=== PATIENT | female | born 1955 | race Caucasian/White ===

== ENCOUNTER 2018-11-04 14:13 | Emergency (ER) | payer MEDICARE, BC ==
[2018-11-04 15:38] VITALS: BP 135/67
[2018-11-04] MEDS ORDERED: HYDROmorphone 0.5 MG/0.5 ML Syringe IM ONE ×2 (16:19→17:34)
--- NOTE | 2018-11-04 16:36 | EDM.PDOC ---
ED HPI GENERAL MEDICAL PROBLEM - General Chief Complaint: Upper Extremity Injury/Pain Stated Complaint: ELBOW AND KNEE INJURY Time Seen by Provider: 11/04/18 16:09 Source of Information: Reports: Patient, RN Notes Reviewed History Limitations: Reports: No Limitations - History of Present Illness INITIAL COMMENTS - FREE TEXT/NARRATIVE: Patient is a 63-year-old female who presents to the ED for evaluation of a fall. Patient states she fell today at her home in her garage onto the cement floor. She denies any sort of loss of consciousness, or dizziness, she thinks she was just resting and fell over her own 2 feet. She ended up hitting her right forehead and left elbow. There is a contusion to her right forehead and left elbow mainly. The patient is wondering if her elbow is grossly she has had limited range of motion in this. Patient notes that she has had prior issues with her knees, but is not having any pain in them today. She is complaining of a headache due to the injury. The patient is not on any sort of blood thinners but does take aspirin, 81 mg on a daily basis. She denied any sort of loss of consciousness, dizziness, blurred vision or double vision, or pain anywhere else in the body. Left Elbow Pain Score (Numeric/FACES): 10 - Related Data Allergies Allergy/AdvReac Type Severity Reaction Status Date / Time Penicillins Allergy Rash Verified 05/07/14 13:50 Home Meds: Home Meds Albuterol Sulfate [Albuterol Sulfate HFA] 2 puff INH Q4H PRN 05/07/14 [History] Aspirin [Susu Chewable Aspirin] 81 mg PO DAILY 05/07/14 [History] Cholecalciferol (Vitamin D3) [Vitamin D3] 2,000 unit PO BID 05/07/14 [History] Furosemide 40 mg PO BID 05/07/14 [History] Glycerin [Laxative Suppository] 1 supp RECTAL ASDIRECTED 05/07/14 [History] Levothyroxine 75 mcg PO DAILY 05/07/14 [History] Metoprolol Tartrate 37.5 mg PO BID 05/07/14 [History] Multivitamin [Multi Vitamin Daily] 1 tab PO DAILY 05/07/14 [History] Mycophenolate Mofetil [Cellcept] 500 mg PO BID 05/07/14 [History] Omeprazole [Prilosec] 40 mg PO DAILY 05/07/14 [History] Polyethylene Glycol 3350 [MiraLAX] 1 dose PO DAILY 05/07/14 [History] Sennosides [Senna] 2 tab PO BID 05/07/14 [History] Tacrolimus 3 mg PO BID 05/07/14 [History] traZODone 100 mg PO BEDTIME 05/07/14 [History] Insulin Degludec [Tresiba] 15 units INJECT BEDTIME 11/04/18 [History] Review of Systems - Review of Systems Review Of Systems: See Below Constitutional: Reports: No Symptoms Eyes: Denies: Blurred Vision, Drainage, Previous Injury, Vision Change Ears: Reports: No Symptoms Nose: Reports: No Symptoms Mouth/Throat: Reports: No Symptoms Respiratory: Reports: No Symptoms Cardiovascular: Reports: No Symptoms GI/Abdominal: Reports: No Symptoms Genitourinary: Reports: No Symptoms Musculoskeletal: Reports: Joint Pain (Left elbow pain/contusion) Skin: Reports: Bruising (left elbow and R forehead) Neurological: Reports: Headache. Denies: Confusion, Dizziness, Numbness, Pre- Existing Deficit, Seizure, Syncope, Tingling Psychiatric: Reports: No Symptoms ED EXAM, GENERAL - Physical Exam Exam: See Below Exam Limited By: No Limitations General Appearance: Alert, WD/WN, No Apparent Distress Eye Exam: Bilateral Eye: EOMI, Normal Inspection, PERRL Ears: Normal External Exam, Normal Canal, Hearing Grossly Normal, Normal TMs Nose: Normal Inspection, Normal Mucosa, No Blood Throat/Mouth: Normal Inspection, Normal Lips, Normal Teeth, Normal Gums, Normal Oropharynx, Normal Voice, No Airway Compromise Head: Normocephalic, Other (Right sided forehead hematoma) Neck: Normal Inspection, Supple, Non-Tender, Full Range of Motion Respiratory/Chest: No Respiratory Distress, Lungs Clear, Normal Breath Sounds, No Accessory Muscle Use, Chest Non-Tender Cardiovascular: Normal Peripheral Pulses, Regular Rate, Rhythm, No Murmur Extremities: Normal Inspection, Normal Capillary Refill Neurological: Alert, Oriented, Normal Cognition, No Motor/Sensory Deficits Psychiatric: Normal Affect, Normal Mood Skin Exam: Warm, Dry, Intact, No Rash, Ecchymosis (to R forehead and L elbow) ED TRAUMA EXTREMITY PROCEDURES - Splinting Left Upper Extremity Splint Site: left elbow Pre-Procedure NV Status: Normal Post-Procedure NV Status: Normal Splint Material: Fiberglass Splint Design: Posterior (long arm slab), Sling Applied & Form Fitted By: Provider Provider Post-Splint Application NV Check: NV Status Normal, Good Position Complications: No Course - Vital Signs Last Recorded V/S: Last Vital Signs Temp 97.4 F 11/04/18 15:37 Pulse 55 L 11/04/18 15:37 Resp 20 11/04/18 15:37 BP 135/67 11/04/18 15:37 Pulse Ox 98 11/04/18 15:37 - Orders/Labs/Meds Orders: Active Orders 24 hr Category Date Time Status Elbow Min 3V Lt [CR] Stat Exams 11/04/18 16:20 Ordered Meds: Medications Discontinued Medications Generic Name Dose Route Start Last Admin Trade Name Freq PRN Reason Stop Dose Admin Hydromorphone HCl 0.5 mg 11/04/18 16:19 11/04/18 16:58 Dilaudid IM 11/04/18 16:20 0.5 mg ONETIME ONE Administration Hydromorphone HCl 0.5 mg 11/04/18 17:34 Dilaudid IM 11/04/18 17:35 ONETIME ONE - Re-Assessments/Exams Free Text/Narrative Re-Assessment/Exam: 11/04/18 16:35 Patient presents to the ED for evaluation of a fall at home. Did order elbow x- rays for evaluation of a possible broken bone. Patient's neuro exam is within normal limits, she is having headache, but states this is just more of a dull ache and would not characterize this as the worst headache she's ever had in her entire life. The patient notes a history of migraines and she says this is minimal compared to that. I did order 0.5 mg IM Dilaudid for initial pain management. 11/04/18 17:37 Patient's x-rays are done, and demonstrate a proximal radial fracture, this is not displaced and appears to be in good alignment. Although I do not have the official radiology read this was identified also by Dr. Huertas, I did call Dr. Rooney, our orthopedic shoe fitter and he recommends putting in a posterior slab splint and he will follow up with the patient this week for a cast. Patient was given another 0.5 mg of IM Dilaudid for pain control due to the anticipated manipulation regarding the splint. Departure - Departure Time of Disposition: 18:15 Disposition: Home, Self-Care 01 Condition: Fair Clinical Impression: Radial head fracture, closed Qualifiers: Encounter type: initial encounter Fracture alignment: nondisplaced Laterality: left Qualified Code(s): S52.125A - Nondisplaced fracture of head of left radius , initial encounter for closed fracture - Discharge Information *PRESCRIPTION DRUG MONITORING PROGRAM REVIEWED*: No *COPY OF PRESCRIPTION DRUG MONITORING REPORT IN PATIENT KARLIE: No Instructions: Radial Head Fracture, [id number] Referrals: Yuki Lincoln NP [Primary Care Provider] - Forms: ED Department Discharge Additional Instructions: You have been evaluated in the ED for your left elbow pain. Your x-ray demonstrated a radial head fracture of your left radius. Please use ice as tolerated to the affected area. You may take Tylenol 500 mg or ibuprofen 600mg q6 hrs for pain relief. Please do so until you have a tolerable level of pain with activity. Do not exceed 4000mg tylenol, Do not exceed 3200mg ibuprofen in a 24 hour time period. You were given a prescription for hydrocodone/acetaminophen 5/325, please take as directed for pain not relieved by Tylenol or ibuprofen alone. Please call Ortho for follow-up and further evaluation Dr. Rooney is our orthopedic surgeon, his office number is [phone]. Please call and set up an appointment as soon as possible for further management. Please return to ED if your symptoms should change or worsen. - My Orders Last 24 Hours: My Active Orders 11/04/18 16:20 Elbow Min 3V Lt [CR] Stat - Assessment/Plan Last 24 Hours: My Active Orders 11/04/18 16:20 Elbow Min 3V Lt [CR] Stat
--- NOTE | 2018-11-05 07:32 | CR ---
Left elbow: Four views of the left elbow were obtained. Comparison: No previous study is available. Slightly displaced and comminuted fracture is noted within the olecranon process. Prominent soft tissue swelling is seen posteriorly. No additional fracture is noted. Joint effusion is seen. Impression: 1. Olecranon process fracture as noted above, soft tissue swelling and joint effusion. Diagnostic code #3
== END 2018-11-04 19:10 | disposition home or self-care (01) ==
LOC: JD.ED 14:13 → SUPCPDRO 14:13 → JD.ED 19:10
DX: S52.125A Nondisplaced fracture of head of left radius, initial encounter for closed fracture (principal); Z88.0 Allergy status to penicillin; Z79.51 Long term (current) use of inhaled steroids; Z79.82 Long term (current) use of aspirin; Z79.899 Other long term (current) drug therapy; Z79.4 Long term (current) use of insulin; W19.XXXA Unspecified fall, initial encounter; W22.8XXA Striking against or struck by other objects, initial encounter
CPT/HCPCS: 29105; 73080; 96372; 99283; J1170

== ENCOUNTER 2021-06-16 07:09 | Emergency (ER) | payer MEDICARE, BC ==
[2021-06-16] MEDS ORDERED: Sodium Chloride 0.9% 10 ML Syringe FLUSH PRN (07:42)
[2021-06-16 07:43] VITALS: BP 155/103; PULSE 86
[2021-06-16] MEDS ORDERED: HYDROmorphone 1 MG/ML Syringe IVPUSH ONE ×2 (08:43→13:34)
[2021-06-16] MEDS ORDERED: Iopamidol 612 MG/ML 100 ML Bottle IVPUSH ONE (09:10)
[2021-06-16] MEDS ORDERED: Diatrizoate Meglumine/Diatrizoate Sodium 37% 120 ML Bottle PO ONE (09:10)
[2021-06-16] MEDS ORDERED: Sodium Chloride 0.9% 100 ML IV SCH (09:15)
[2021-06-16] MEDS: Sodium Chloride 0.9% 10 ML Syringe FLUSH ONE (09:36)
[2021-06-16 09:49] LABS: CORONAVIRUS COVID-19 NAA NEGATIVE (NEGATIVE)
[2021-06-16] MEDS ORDERED: Aspirin 81 MG Tab.Chew PO ONE (10:47)
[2021-06-16] MEDS: Potassium Chloride 10 MEQ in Premix Bag 1 BAG IV SCH ×2 (11:33→13:25)
== END 2021-06-16 13:45 ==
LOC: JD.ED 07:09
DX: S22.42XA Multiple fractures of ribs, left side, initial encounter for closed fracture (principal); M54.50 Low back pain, unspecified; R41.0 Disorientation, unspecified; N28.9 Disorder of kidney and ureter, unspecified; E78.00 Pure hypercholesterolemia, unspecified; I10 Essential (primary) hypertension; K21.9 Gastro-esophageal reflux disease without esophagitis; E66.9 Obesity, unspecified; Z68.30 Body mass index [BMI] 30.0-30.9, adult; Z88.0 Allergy status to penicillin; Z79.899 Other long term (current) drug therapy; Z20.822 Contact with and (suspected) exposure to COVID-19; W19.XXXA Unspecified fall, initial encounter
CPT/HCPCS: 0240U; 36415; 70450; 70450-26; 71045; 71045-26; 72131; 72131-26; 74177; 74177-26; 80053; 81001; 83605; 83690; 83735; 84484; 85025; 85610; 85730; 86140; 93005; 96365; 96366; 96375; 96376; 99285-25; A9270-GY; J1170; J3480; J3490; Q9963; Q9967

== ENCOUNTER 2022-06-29 18:02 | Emergency (ER) | payer MEDICARE, BC ==
[2022-06-29] MEDS ORDERED: Sodium Chloride 0.9% 10 ML Syringe FLUSH PRN (18:25)
[2022-06-29] MEDS ORDERED: Diltiazem 25 MG/5 ML SDV IVPUSH ONE (18:25)
[2022-06-29] MEDS ORDERED: Sodium Chloride 0.9% 1,000 ML IV ONE ×2 (18:25→20:05)
[2022-06-29] MEDS ORDERED: Diltiazem 125 MG in Sodium Chloride 0.9% 100 ML IV SCH (19:45)
[2022-06-29] MEDS ORDERED: Potassium Chloride 20 MEQ Tab.ER PO ONE (19:48)
[2022-06-29] MEDS ORDERED: Sodium Chloride 0.9% 1,000 ML ONE (19:54)
[2022-06-29] MEDS ORDERED: Metoprolol Tartrate 25 MG Tab PO ONE (19:57)
[2022-06-29] MEDS ORDERED: Potassium Chloride 10 MEQ in Premix Bag 1 BAG IV SCH (20:00)
[2022-06-29] MEDS ORDERED: Metoprolol Tartrate 5 MG/5 ML SDV IVPUSH SCH (20:00)
[2022-06-29] MEDS ORDERED: Potassium Chloride 10 MEQ in Premix Bag 1 BAG IV ONE (20:18)
[2022-06-29] MEDS ORDERED: Metoprolol Tartrate 5 MG/5 ML SDV IVPUSH ONE (20:19)
[2022-06-29] MEDS ORDERED: Potassium Chloride 20 MEQ Tab.ER ONE (20:33)
[2022-06-29] MEDS ORDERED: Potassium Chloride 100 ML ONE (20:33)
[2022-06-29] MEDS ORDERED: Metoprolol Tartrate 5 MG/5 ML SDV ONE (20:34)
[2022-06-29] MEDS ORDERED: Metoprolol Tartrate 50 MG Tab ONE (20:35)
[2022-06-29] MEDS ORDERED: Metoprolol Tartrate 25 MG Tab ONE (20:51)
[2022-06-29] MEDS ORDERED: Sodium Chloride 0.9% 500 ML IV ONE (22:34)
[2022-06-29] MEDS ORDERED: Sodium Chloride 0.9% 1,000 ML IV SCH (23:15)
[2022-06-30 06:27] VITALS: BP 113/83; PULSE 95
== END 2022-06-30 07:20 | disposition home or self-care (01) ==
LOC: JD.ED 18:02
DX: R41.82 Altered mental status, unspecified (principal); I48.91 Unspecified atrial fibrillation; E86.0 Dehydration; R73.9 Hyperglycemia, unspecified; D72.819 Decreased white blood cell count, unspecified; D64.9 Anemia, unspecified; I10 Essential (primary) hypertension; E66.9 Obesity, unspecified; K21.9 Gastro-esophageal reflux disease without esophagitis; Z88.0 Allergy status to penicillin; E78.00 Pure hypercholesterolemia, unspecified; Z79.899 Other long term (current) drug therapy; Z79.82 Long term (current) use of aspirin; Z87.891 Personal history of nicotine dependence
CPT/HCPCS: 36415; 36430; 71045; 80048; 80053; 80180; 80197; 80307; 81001; 82140; 83605; 83690; 83735; 84443; 85025; 86140; 86850; 86900; 86901; 86922; 87040; 93005; 96361; 96365; 96375; 99285; A9270; J3480; J3490; J7030; P9016; 93010; 99284

== ENCOUNTER 2022-08-15 12:22 | Inpatient (IN) | payer MEDICARE, BC ==
[2022-08-15 13:44] LABS: CORONAVIRUS COVID-19 NAA NEGATIVE (NEGATIVE); INFLUENZA A NAA NEGATIVE (NEGATIVE); RESPIRATORY SYNCYTIAL VIR NAA NEGATIVE (NEGATIVE)
[2022-08-15] MEDS ORDERED: Sodium Chloride 0.9% 1,000 ML IV ONE ×3 (13:51→19:01)
[2022-08-15 13:52] LABS: HEMATOCRIT 30.8 % (34.1-44.9); MEAN CORPUSCULAR HGB CONC 31.2 g/dl (32.2-35.5); MEAN CORPUSCULAR VOLUME 112.4 fl (79.4-94.8); MEAN PLATELET VOLUME 8.6 fl (9.4-12.3); PLATELET COUNT,PLT 157 K/mm3 (182-369); RED BLOOD CELL COUNT 2.74 M/mm3 (3.98-5.22); WHITE BLOOD CELL COUNT,WBC 4.07 K/mm3 (3.98-10.04)
[2022-08-15 13:59] LABS: HEMOGLOBIN 9.6 gm/dl (11.2-15.7)
[2022-08-15 14:23] LABS: A/G RATIO 1.2 (1-2); ALBUMIN 4.4 g/dl (3.4-5.0); ANION GAP 25.5 (5-15); BILIRUBIN TOTAL 0.4 mg/dL (0.2-1.0); BUN/CREATININE RATIO 25.8 (14-18); CALCIUM 9.7 mg/dL (8.5-10.1); CREATININE 3.3 mg/dL (0.55-1.02); EST CRCL DRUG DOSING (CG) 14.89 mL/min; MAGNESIUM 2.4 mg/dL (1.8-2.4); POTASSIUM,K 4.5 mEq/L (3.5-5.1); PROTEIN TOTAL,TP 8.1 g/dl (6.4-8.2)
[2022-08-15 14:25] LABS: LACTIC ACID 1.7 mmol/L (0.4-2.0)
[2022-08-15 14:30] LABS: BAND PERCENT MAN 4 % (0-10); BASOPHILS PERCENT MAN 0 (0.1-1.2); EOSINOPHILS PERCENT MAN 0 % (0.7-5.8); LYMPHOCYTES % ATYPICAL MANUAL 0 %; LYMPHOCYTES PERCENT MAN 14 % (20-40); MONOCYTES PERCENT MAN 5 % (2-10)
[2022-08-15 14:31] LABS: ANISOCYTOSIS 3+ MARKED; PLATELET COUNT ESTIMATE ADEQUATE; TOXIC GRANULATION 1+ SLIGHT
[2022-08-15] MEDS ORDERED: Diltiazem 25 MG/5 ML SDV IVPUSH ONE (18:32)
[2022-08-15 18:39] LABS: ANION GAP 23.6 (5-15); BUN/CREATININE RATIO 27.1 (14-18); CREATININE 2.8 mg/dL (0.55-1.02); EST CRCL DRUG DOSING (CG) 17.54 mL/min; POTASSIUM,K 4.6 mEq/L (3.5-5.1)
[2022-08-15 19:36] LABS: APPEARANCE,URINE CLEAR (Clear); BILIRUBIN,URINE 1+ (Negative); COLOR,URINE YELLOW (Yellow); GLUCOSE,URINE NEGATIVE (Negative); KETONES,URINE 1+ (Negative); LEUKOCYTE ESTERASE,URINE NEGATIVE (Negative); NITRITE,URINE NEGATIVE (Negative); OCCULT BLOOD,URINE 1+ (Negative); PH,URINE 5.5 (5.0-8.0); PROTEIN,URINE 2+ (Negative); UROBILINOGEN,URINE 0.2 (0.2-1.0)
[2022-08-15 19:57] LABS: BACTERIA,URINE FEW /hpf (FEW); HYALINE CASTS,URINE 0-5 /lpf (0-5); MUCUS,URINE RARE /hpf (FEW); RBC,URINE 0-5 /hpf (0-5); SQUAMOUS EPITHELIAL CELLS,UR NOT SEEN /hpf (0-5); WBC,URINE 0-5 /hpf (0-5)
[2022-08-15] MEDS ORDERED: Docusate Sodium 100 MG Cap PO PRN (20:59)
[2022-08-15] MEDS ORDERED: oxyCODONE 5 MG Tab PO PRN (20:59)
[2022-08-15] MEDS ORDERED: Ondansetron 4 MG Tab.DIS PO PRN (20:59)
[2022-08-15] MEDS ORDERED: Acetaminophen 650 MG Supp RECTAL PRN (20:59)
[2022-08-15] MEDS ORDERED: Ondansetron 4 MG/2 ML SDV IV PRN (20:59)
[2022-08-15] MEDS ORDERED: Polyethylene Glycol 3350 Powder 17 GM Packet PO PRN (20:59)
[2022-08-15] MEDS ORDERED: Glucose Gel 15 GM in 37.5 GM Tube PO ONE (20:59)
[2022-08-15] MEDS ORDERED: Albuterol/Ipratropium 3.0-0.5 MG/3 ML Neb Soln NEB PRN (20:59)
[2022-08-15] MEDS ORDERED: Sodium Chloride 0.9% 1,000 ML IV SCH (21:00)
[2022-08-15 21:27] LABS: HEMOGLOBIN A1C 5.6 %
[2022-08-15] MEDS: cefTRIAXone 1 GM in Sodium Chloride 0.9% 50 ML IV SCH (22:22)
[2022-08-15] MEDS: Acetaminophen 325 MG Tab PO PRN (22:22)
[2022-08-15] MEDS: Azithromycin 500 MG in Sodium Chloride 0.9% 250 ML IV SCH (22:43)
[2022-08-16] MEDS: ALPRAZolam 0.25 MG Tab PO PRN ×2 (03:51→21:14)
[2022-08-16] MEDS: Acetaminophen 325 MG Tab PO PRN ×4 (03:51→21:14)
[2022-08-16] MEDS: Sodium Chloride 0.9% 1,000 ML IV SCH ×2 (05:26→19:16)
[2022-08-16 06:14] LABS: ANION GAP 25.7 (5-15); BUN/CREATININE RATIO 29.1 (14-18); CALCIUM 8.8 mg/dL (8.5-10.1); CREATININE 2.3 mg/dL (0.55-1.02); EST CRCL DRUG DOSING (CG) 21.36 mL/min; POTASSIUM,K 3.7 mEq/L (3.5-5.1)
[2022-08-16 06:25] LABS: EOSINOPHILS PERCENT AUTO 0 (0.7-5.8); HEMATOCRIT 23.2 % (34.1-44.9); IMMATURE GRAN ABSOLUTE AUTO 0.01 K/mm3 (0.00-0.10); IMMATURE GRAN PERCENT AUTO 0.4 % (<=1.0); LYMPHOCYTES ABSOLUTE AUTO 0.25 K/mm3 (1.18-3.74); LYMPHOCYTES PERCENT AUTO 10.4 % (19.3-51.7); MEAN CORPUSCULAR HEMOGLOBIN 35.1 pg (25.6-32.2); MEAN CORPUSCULAR HGB CONC 31.5 g/dl (32.2-35.5); MEAN CORPUSCULAR VOLUME 111.5 fl (79.4-94.8); MEAN PLATELET VOLUME 8.5 fl (9.4-12.3); MONOCYTES ABSOLUTE AUTO 0.39 K/mm3 (0.24-0.36); MONOCYTES PERCENT AUTO 16.3 % (4.7-12.5); NEUTROPHILS ABSOLUTE AUTO 1.75 K/mm3 (1.56-6.13); NEUTROPHILS PERCENT AUTO 72.9 % (34.0-71.1); PLATELET COUNT,PLT 121 K/mm3 (182-369); RED BLOOD CELL COUNT 2.08 M/mm3 (3.98-5.22)
[2022-08-16] MEDS ORDERED: Benzonatate 100 MG Cap PO PRN (06:53)
[2022-08-16 07:07] LABS: HEMOGLOBIN 7.3 gm/dl (11.2-15.7)
[2022-08-16] MEDS ORDERED: Sodium Bicarbonate 8.4% 50 MEQ/50 ML Syringe IVPUSH ONE (07:35)
[2022-08-16] MEDS: Insulin Lispro 100 Unit/ML 3 ML KwikPen SUBCUT SCH ×4 (08:35→21:08)
[2022-08-16] MEDS: guaiFENesin 600 MG Tab.ER PO SCH ×2 (08:37→21:14)
[2022-08-16] MEDS: Metoprolol Tartrate 25 MG Tab PO SCH ×2 (08:39→21:03)
[2022-08-16] MEDS: Cyclobenzaprine 10 MG Tab PO SCH (08:39)
[2022-08-16] MEDS: Pantoprazole 40 MG Tab.CR PO SCH ×2 (08:41→21:03)
[2022-08-16] MEDS: Multivitamin Tab PO SCH (08:41)
[2022-08-16] MEDS: Aspirin 81 MG Tab.Chew PO SCH (08:41)
[2022-08-16] MEDS: Sodium Bicarbonate 650 MG Tab PO SCH ×2 (08:41→21:03)
[2022-08-16] MEDS: Pravastatin 20 MG Tab PO SCH (08:41)
[2022-08-16] MEDS: Tacrolimus 1 MG Cap PO SCH ×2 (08:43→21:07)
[2022-08-16] MEDS: Mycophenolate Mofetil 250 MG Cap PO SCH ×2 (08:44→21:07)
[2022-08-16] MEDS: Insulin Glargine,Human Rec. Analog 100 Units/ML 3 ML Pen SUBCUT SCH (08:44)
[2022-08-16] MEDS: LOVENOX SUBCUT SCH (08:46)
[2022-08-16 09:25] LABS: SLIDE REVIEW ABNORMAL SMEAR
[2022-08-16] MEDS: cefTRIAXone 1 GM in Sodium Chloride 0.9% 50 ML IV SCH (21:01)
[2022-08-16] MEDS: Azithromycin 500 MG in Sodium Chloride 0.9% 250 ML IV SCH (21:17)
[2022-08-17] MEDS: Acetaminophen 325 MG Tab PO PRN ×2 (02:37→20:26)
[2022-08-17 06:08] LABS: EOSINOPHILS PERCENT AUTO 0 (0.7-5.8); HEMATOCRIT 21.5 % (34.1-44.9); IMMATURE GRAN ABSOLUTE AUTO 0.02 K/mm3 (0.00-0.10); IMMATURE GRAN PERCENT AUTO 1.6 % (<=1.0); LYMPHOCYTES ABSOLUTE AUTO 0.19 K/mm3 (1.18-3.74); LYMPHOCYTES PERCENT AUTO 14.8 % (19.3-51.7); MEAN CORPUSCULAR HEMOGLOBIN 34.4 pg (25.6-32.2); MEAN CORPUSCULAR HGB CONC 31.2 g/dl (32.2-35.5); MEAN CORPUSCULAR VOLUME 110.3 fl (79.4-94.8); MEAN PLATELET VOLUME 8.8 fl (9.4-12.3); MONOCYTES ABSOLUTE AUTO 0.31 K/mm3 (0.24-0.36); MONOCYTES PERCENT AUTO 24.2 % (4.7-12.5); NEUTROPHILS ABSOLUTE AUTO 0.76 K/mm3 (1.56-6.13); NEUTROPHILS PERCENT AUTO 59.4 % (34.0-71.1); PLATELET COUNT,PLT 110 K/mm3 (182-369); RED BLOOD CELL COUNT 1.95 M/mm3 (3.98-5.22)
[2022-08-17 06:18] LABS: WHITE BLOOD CELL COUNT,WBC 1.28 K/mm3 (3.98-10.04)
[2022-08-17 06:19] LABS: HEMOGLOBIN 6.7 gm/dl (11.2-15.7)
[2022-08-17 06:20] LABS: POTASSIUM,K 3.6 mEq/L (3.5-5.1)
[2022-08-17 06:31] LABS: ANION GAP 20.6 (5-15); BUN/CREATININE RATIO 29.4 (14-18); CREATININE 1.7 mg/dL (0.55-1.02); EST CRCL DRUG DOSING (CG) 28.9 mL/min
[2022-08-17 07:17] LABS: SLIDE REVIEW ABNORMAL SMEAR
[2022-08-17] MEDS: Insulin Lispro 100 Unit/ML 3 ML KwikPen SUBCUT SCH ×4 (08:30→20:44)
[2022-08-17] MEDS: Pantoprazole 40 MG Tab.CR PO SCH ×2 (08:31→20:41)
[2022-08-17] MEDS: Sodium Bicarbonate 650 MG Tab PO SCH ×2 (08:31→20:41)
[2022-08-17] MEDS: guaiFENesin 600 MG Tab.ER PO SCH ×2 (08:31→20:40)
[2022-08-17] MEDS: LOVENOX SUBCUT SCH (08:31)
[2022-08-17] MEDS: Metoprolol Tartrate 25 MG Tab PO SCH ×2 (08:32→20:39)
[2022-08-17] MEDS: Multivitamin Tab PO SCH (08:33)
[2022-08-17] MEDS: Aspirin 81 MG Tab.Chew PO SCH (08:33)
[2022-08-17] MEDS: Cyclobenzaprine 10 MG Tab PO SCH (08:33)
[2022-08-17] MEDS: Pravastatin 20 MG Tab PO SCH (08:34)
[2022-08-17] MEDS: Tacrolimus 1 MG Cap PO SCH ×2 (08:36→20:42)
[2022-08-17] MEDS: Mycophenolate Mofetil 250 MG Cap PO SCH ×2 (08:37→20:42)
[2022-08-17] MEDS: Insulin Glargine,Human Rec. Analog 100 Units/ML 3 ML Pen SUBCUT SCH (08:37)
[2022-08-17] MEDS ORDERED: Furosemide 20 MG/2 ML VIAL IVPUSH ONE ×2 (09:45→15:30)
[2022-08-17] MEDS: Cefepime 2 GM in Sodium Chloride 0.9% 50 ML IV SCH ×2 (10:12→22:18)
[2022-08-17] MEDS: Sodium Chloride 0.9% 1,000 ML IV SCH ×2 (12:03→17:51)
[2022-08-17 19:09] LABS: HEMATOCRIT 28.1 % (34.1-44.9)
[2022-08-17 19:16] LABS: HEMOGLOBIN 8.8 gm/dl (11.2-15.7)
[2022-08-17] MEDS: Azithromycin 250 MG Tab PO SCH (20:41)
[2022-08-17] MEDS: ALPRAZolam 0.25 MG Tab PO PRN (20:41)
[2022-08-18] MEDS: Acetaminophen 325 MG Tab PO PRN ×3 (02:12→18:11)
[2022-08-18 05:51] LABS: ANION GAP 19.1 (5-15); BUN/CREATININE RATIO 27.1 (14-18); CALCIUM 9.1 mg/dL (8.5-10.1); CREATININE 1.4 mg/dL (0.55-1.02); EST CRCL DRUG DOSING (CG) 35.09 mL/min; POTASSIUM,K 3.1 mEq/L (3.5-5.1)
[2022-08-18 06:12] LABS: EOSINOPHILS ABSOLUTE AUTO 0.01 K/mm3 (0.04-0.36); EOSINOPHILS PERCENT AUTO 0.9 (0.7-5.8); HEMATOCRIT 25.9 % (34.1-44.9); HEMOGLOBIN 8.4 gm/dl (11.2-15.7); IMMATURE GRAN ABSOLUTE AUTO 0.01 K/mm3 (0.00-0.10); IMMATURE GRAN PERCENT AUTO 0.9 % (<=1.0); LYMPHOCYTES ABSOLUTE AUTO 0.27 K/mm3 (1.18-3.74); LYMPHOCYTES PERCENT AUTO 23.9 % (19.3-51.7); MEAN CORPUSCULAR HEMOGLOBIN 32.8 pg (25.6-32.2); MEAN CORPUSCULAR HGB CONC 32.4 g/dl (32.2-35.5); MEAN CORPUSCULAR VOLUME 101.2 fl (79.4-94.8); MEAN PLATELET VOLUME 9.1 fl (9.4-12.3); MONOCYTES PERCENT AUTO 26.5 % (4.7-12.5); NEUTROPHILS ABSOLUTE AUTO 0.54 K/mm3 (1.56-6.13); NEUTROPHILS PERCENT AUTO 47.8 % (34.0-71.1); PLATELET COUNT,PLT 100 K/mm3 (182-369); RED BLOOD CELL COUNT 2.56 M/mm3 (3.98-5.22)
[2022-08-18 06:33] LABS: WHITE BLOOD CELL COUNT,WBC 1.13 K/mm3 (3.98-10.04)
[2022-08-18] MEDS: Insulin Lispro 100 Unit/ML 3 ML KwikPen SUBCUT SCH ×4 (07:30→21:11)
[2022-08-18 09:03] LABS: SLIDE REVIEW ABNORMAL SMEAR
[2022-08-18] MEDS: Cyclobenzaprine 10 MG Tab PO SCH (09:07)
[2022-08-18] MEDS: Sodium Bicarbonate 650 MG Tab PO SCH ×2 (09:07→20:37)
[2022-08-18] MEDS: Aspirin 81 MG Tab.Chew PO SCH (09:07)
[2022-08-18] MEDS: guaiFENesin 600 MG Tab.ER PO SCH ×2 (09:07→20:37)
[2022-08-18] MEDS: Metoprolol Tartrate 25 MG Tab PO SCH ×2 (09:08→20:37)
[2022-08-18] MEDS: Multivitamin Tab PO SCH (09:10)
[2022-08-18] MEDS: Pravastatin 20 MG Tab PO SCH (09:10)
[2022-08-18] MEDS: Mycophenolate Mofetil 250 MG Cap PO SCH ×2 (09:11→20:44)
[2022-08-18] MEDS: Tacrolimus 1 MG Cap PO SCH ×2 (09:12→20:44)
[2022-08-18] MEDS: Pantoprazole 40 MG Tab.CR PO SCH ×2 (09:12→20:37)
[2022-08-18] MEDS: Insulin Glargine,Human Rec. Analog 100 Units/ML 3 ML Pen SUBCUT SCH (09:13)
[2022-08-18] MEDS: Cefepime 2 GM in Sodium Chloride 0.9% 50 ML IV SCH ×2 (10:00→21:09)
[2022-08-18] MEDS: Sodium Chloride 0.9% 1,000 ML IV SCH ×2 (13:26→22:52)
[2022-08-18] MEDS ORDERED: Magnesium Sulfate/Water 4 GM in Premix Bag 1 BAG IV ONE (18:46)
[2022-08-18] MEDS: Potassium Chloride 10 MEQ in Premix Bag 1 BAG IV SCH ×4 (18:59→22:40)
[2022-08-18] MEDS: ALPRAZolam 0.25 MG Tab PO PRN (20:37)
[2022-08-18] MEDS: Azithromycin 250 MG Tab PO SCH (20:37)
[2022-08-18] MEDS ORDERED: Diclofenac Sodium 1% Gel 100 GM Tube TOP PRN (20:50)
[2022-08-19] MEDS: Insulin Lispro 100 Unit/ML 3 ML KwikPen SUBCUT SCH ×4 (07:49→21:17)
[2022-08-19] MEDS: Aspirin 81 MG Tab.Chew PO SCH (08:37)
[2022-08-19] MEDS: Multivitamin Tab PO SCH (08:38)
[2022-08-19] MEDS: Cyclobenzaprine 10 MG Tab PO SCH (08:38)
[2022-08-19] MEDS: guaiFENesin 600 MG Tab.ER PO SCH ×2 (08:38→21:17)
[2022-08-19] MEDS: ALPRAZolam 0.25 MG Tab PO PRN ×2 (08:39→22:21)
[2022-08-19] MEDS: Sodium Bicarbonate 650 MG Tab PO SCH ×2 (08:39→21:15)
[2022-08-19] MEDS: Metoprolol Tartrate 25 MG Tab PO SCH ×2 (08:40→21:15)
[2022-08-19] MEDS: Pantoprazole 40 MG Tab.CR PO SCH ×2 (08:42→21:16)
[2022-08-19] MEDS: Pravastatin 20 MG Tab PO SCH (08:42)
[2022-08-19] MEDS: Insulin Glargine,Human Rec. Analog 100 Units/ML 3 ML Pen SUBCUT SCH (08:43)
[2022-08-19] MEDS: Mycophenolate Mofetil 250 MG Cap PO SCH ×2 (08:44→21:12)
[2022-08-19] MEDS: Tacrolimus 1 MG Cap PO SCH ×2 (08:44→21:13)
[2022-08-19] MEDS: Sodium Chloride 0.9% 1,000 ML IV SCH (08:53)
[2022-08-19 10:25] LABS: EOSINOPHILS ABSOLUTE AUTO 0.02 K/mm3 (0.04-0.36); EOSINOPHILS PERCENT AUTO 1.9 (0.7-5.8); HEMATOCRIT 25.9 % (34.1-44.9); HEMOGLOBIN 8.3 gm/dl (11.2-15.7); LYMPHOCYTES ABSOLUTE AUTO 0.33 K/mm3 (1.18-3.74); LYMPHOCYTES PERCENT AUTO 30.6 % (19.3-51.7); MEAN CORPUSCULAR HEMOGLOBIN 32.9 pg (25.6-32.2); MEAN CORPUSCULAR VOLUME 102.8 fl (79.4-94.8); MEAN PLATELET VOLUME 8.5 fl (9.4-12.3); MONOCYTES ABSOLUTE AUTO 0.25 K/mm3 (0.24-0.36); MONOCYTES PERCENT AUTO 23.1 % (4.7-12.5); NEUTROPHILS ABSOLUTE AUTO 0.48 K/mm3 (1.56-6.13); NEUTROPHILS PERCENT AUTO 44.4 % (34.0-71.1); PLATELET COUNT,PLT 73 K/mm3 (182-369); RED BLOOD CELL COUNT 2.52 M/mm3 (3.98-5.22)
[2022-08-19 10:39] LABS: ANION GAP 15.9 (5-15); BUN/CREATININE RATIO 27.5 (14-18); CALCIUM 8.8 mg/dL (8.5-10.1); CREATININE 1.2 mg/dL (0.55-1.02); EST CRCL DRUG DOSING (CG) 40.94 mL/min; MAGNESIUM 2.4 mg/dL (1.8-2.4); POTASSIUM,K 3.9 mEq/L (3.5-5.1)
[2022-08-19 10:43] LABS: WHITE BLOOD CELL COUNT,WBC 1.08 K/mm3 (3.98-10.04)
[2022-08-19 10:52] LABS: SLIDE REVIEW ABNORMAL SMEAR
[2022-08-19] MEDS: Cefepime 2 GM in Sodium Chloride 0.9% 50 ML IV SCH ×2 (11:45→21:19)
[2022-08-19] MEDS ORDERED: oxyCODONE 5 MG Tab PO PRN (14:14)
[2022-08-19] MEDS: Ferrous Sulfate 324 MG Tab.EC PO SCH (17:27)
[2022-08-19] MEDS: Azithromycin 250 MG Tab PO SCH (21:14)
[2022-08-19] MEDS: Acetaminophen 325 MG Tab PO PRN (22:21)
[2022-08-20] MEDS: Acetaminophen 325 MG Tab PO PRN (06:03)
[2022-08-20] MEDS: Ferrous Sulfate 324 MG Tab.EC PO SCH (07:07)
[2022-08-20] MEDS: Cefepime 2 GM in Sodium Chloride 0.9% 50 ML IV SCH (09:49)
[2022-08-20] MEDS: Metoprolol Tartrate 25 MG Tab PO SCH (09:50)
[2022-08-20] MEDS: Multivitamin Tab PO SCH (09:50)
[2022-08-20] MEDS: Sodium Bicarbonate 650 MG Tab PO SCH (09:50)
[2022-08-20] MEDS: Cyclobenzaprine 10 MG Tab PO SCH (09:51)
[2022-08-20] MEDS: Aspirin 81 MG Tab.Chew PO SCH (09:51)
[2022-08-20] MEDS: Pantoprazole 40 MG Tab.CR PO SCH (09:53)
[2022-08-20] MEDS: guaiFENesin 600 MG Tab.ER PO SCH (09:53)
[2022-08-20] MEDS: Pravastatin 20 MG Tab PO SCH (09:53)
[2022-08-20] MEDS: Mycophenolate Mofetil 250 MG Cap PO SCH (09:56)
[2022-08-20] MEDS: Insulin Lispro 100 Unit/ML 3 ML KwikPen SUBCUT SCH (09:56)
[2022-08-20] MEDS: Tacrolimus 1 MG Cap PO SCH (09:57)
[2022-08-20 14:39] VITALS: BP 128/78; PULSE 108
== END 2022-08-20 14:05 | disposition home or self-care (01) | DRG 871 ==
LOC: JD.ED 12:22 → JD.MS 20:15
PROVIDERS: ADMIT Hospitalist; ATTEND Hospitalist
DX: A41.51 Sepsis due to Escherichia coli [E. coli] (principal); I48.91 Unspecified atrial fibrillation; I10 Essential (primary) hypertension; I25.2 Old myocardial infarction; J15.6 Pneumonia due to other Gram-negative bacteria; E11.9 Type 2 diabetes mellitus without complications; E66.9 Obesity, unspecified; Z68.24 Body mass index [BMI] 24.0-24.9, adult; Z79.4 Long term (current) use of insulin; Z94.4 Liver transplant status; J44.0 Chronic obstructive pulmonary disease with (acute) lower respiratory infection; N17.9 Acute kidney failure, unspecified; Z20.822 Contact with and (suspected) exposure to COVID-19; I48.20 Chronic atrial fibrillation, unspecified; E78.5 Hyperlipidemia, unspecified; K21.9 Gastro-esophageal reflux disease without esophagitis; R65.20 Severe sepsis without septic shock; D70.3 Neutropenia due to infection; D63.1 Anemia in chronic kidney disease; N18.9 Chronic kidney disease, unspecified; E11.22 Type 2 diabetes mellitus with diabetic chronic kidney disease; I12.9 Hypertensive chronic kidney disease with stage 1 through stage 4 chronic kidney disease, or unspecified chronic kidney disease; Z79.82 Long term (current) use of aspirin; Z79.899 Other long term (current) drug therapy; Z79.51 Long term (current) use of inhaled steroids; Z98.890 Other specified postprocedural states; Z88.0 Allergy status to penicillin; Z95.1 Presence of aortocoronary bypass graft; Z98.84 Bariatric surgery status
CPT/HCPCS: 0241U; 36415; 36430; 80048; 80053; 81001; 82009; 82270; 82947; 83036; 83605; 83735; 83930; 84484; 85007; 85014; 85018; 85025; 85027; 86850; 86900; 86901; 86922; 87040; 87077; 87154; 87186; 87496; 93005; 93306; 96360; 99284; 93010; 99285; A9270-GY; J0456; J0692; J0696; J1650; J1815; J1815-GY; J1940; J3475; J3480; J3490; J7030; J7050; J7507; P9016

== ENCOUNTER 2022-10-18 17:10 | Inpatient (IN) | payer MEDICARE, BC ==
[2022-10-18] MEDS ORDERED: Sodium Chloride 0.9% 10 ML Syringe FLUSH PRN ×2 (17:37→20:38)
[2022-10-18] MEDS ORDERED: Sodium Chloride 0.9% 1,000 ML IV STA ×2 (17:38→20:16)
[2022-10-18 18:47] LABS: HEMATOCRIT 26.1 % (34.1-44.9); HEMOGLOBIN 8.4 gm/dl (11.2-15.7); MEAN CORPUSCULAR HEMOGLOBIN 35.9 pg (25.6-32.2); MEAN CORPUSCULAR HGB CONC 32.2 g/dl (32.2-35.5); MEAN PLATELET VOLUME 9.1 fl (9.4-12.3); RED BLOOD CELL COUNT 2.34 M/mm3 (3.98-5.22)
[2022-10-18 18:55] LABS: MEAN CORPUSCULAR VOLUME 111.5 fl (79.4-94.8); PLATELET COUNT,PLT 150 K/mm3 (182-369); WHITE BLOOD CELL COUNT,WBC 1.27 K/mm3 (3.98-10.04)
[2022-10-18 18:58] LABS: APPEARANCE,URINE CLOUDY (Clear); BILIRUBIN,URINE 1+ (Negative); COLOR,URINE YELLOW (Yellow); GLUCOSE,URINE NEGATIVE (Negative); KETONES,URINE 2+ (Negative); LEUKOCYTE ESTERASE,URINE 2+ (Negative); NITRITE,URINE NEGATIVE (Negative); OCCULT BLOOD,URINE 3+ (Negative); PROTEIN,URINE 3+ (Negative); UROBILINOGEN,URINE 0.2 (0.2-1.0)
[2022-10-18 19:08] LABS: BACTERIA,URINE MODERATE /hpf (FEW); EPITHELIAL CELLS,URINE 0-5 /hpf (0-5); RBC,URINE 50-75 /hpf (0-5); WBC,URINE 50-75 /hpf (0-5)
[2022-10-18 19:09] LABS: MUCUS,URINE FEW /hpf (FEW)
[2022-10-18 19:11] LABS: INR 1.07; PROTHROMBIN TIME 11.4 SECONDS (9.7-12.0)
[2022-10-18 19:23] LABS: A/G RATIO 0.9 (1-2); ALBUMIN 3.5 g/dl (3.4-5.0); BILIRUBIN TOTAL 0.5 mg/dL (0.2-1.0); BUN/CREATININE RATIO 33.8 (14-18); CALCIUM 7.6 mg/dL (8.5-10.1); CREATININE 2.1 mg/dL (0.55-1.02); EST CRCL DRUG DOSING (CG) 23.39 mL/min; PROTEIN TOTAL,TP 7.3 g/dl (6.4-8.2)
[2022-10-18 19:35] LABS: C-REACTIVE PROTEIN 21.1 mg/dL (<1.0)
[2022-10-18 19:40] LABS: BAND PERCENT MAN 1 % (0-10); BASOPHILS PERCENT MAN 0 (0.1-1.2); EOSINOPHILS PERCENT MAN 0 % (0.7-5.8); LYMPHOCYTES % ATYPICAL MANUAL 0 %; LYMPHOCYTES PERCENT MAN 22 % (20-40); MONOCYTES PERCENT MAN 12 % (2-10)
[2022-10-18 19:44] LABS: ANISOCYTOSIS 2+ MODERATE; OVALOCYTES 1+ SLIGHT; POIKILOCYTOSIS 1+ SLIGHT
[2022-10-18 19:45] LABS: PLATELET COUNT ESTIMATE ADEQUATE
[2022-10-18] MEDS ORDERED: cefTRIAXone 2 GM in Sodium Chloride 0.9% 100 ML IV ONE (19:49)
[2022-10-18] MEDS ORDERED: Acetaminophen 325 MG Tab PO ONE (20:21)
[2022-10-18] MEDS ORDERED: Ondansetron 4 MG/2 ML SDV IV PRN (20:38)
[2022-10-18] MEDS ORDERED: Ondansetron 4 MG Tab.DIS PO PRN (20:38)
[2022-10-18] MEDS ORDERED: Docusate Sodium 100 MG Cap PO PRN (20:38)
[2022-10-18] MEDS ORDERED: Piperacillin/Tazobactam 4.5 GM in Sodium Chloride 0.9% 100 ML IV SCH (20:45)
[2022-10-18] MEDS ORDERED: Levofloxacin/Dextrose 5%-Water 500 MG in Premix Bag 1 BAG IV SCH (20:45)
[2022-10-18] MEDS ORDERED: Levofloxacin/Dextrose 5%-Water 500 MG in Premix Bag 1 BAG IV ONE (21:30)
[2022-10-18] MEDS: Heparin Sodium 5,000 Units/ML Vial SUBCUT SCH (22:27)
[2022-10-18] MEDS: cefTRIAXone 2 GM in Sodium Chloride 0.9% 100 ML IV SCH (22:28)
[2022-10-18] MEDS: Sodium Chloride 0.9% 1,000 ML IV SCH (22:29)
[2022-10-19] MEDS: Acetaminophen 325 MG Tab PO PRN ×3 (00:46→20:34)
[2022-10-19] MEDS: Heparin Sodium 5,000 Units/ML Vial SUBCUT SCH ×2 (04:00→13:41)
[2022-10-19] MEDS: Sodium Chloride 0.9% 1,000 ML IV SCH (04:00)
[2022-10-19 05:50] LABS: A/G RATIO 0.9 (1-2); ALBUMIN 2.9 g/dl (3.4-5.0); ANION GAP 22.6 (5-15); BILIRUBIN TOTAL 0.3 mg/dL (0.2-1.0); BUN/CREATININE RATIO 32.8 (14-18); CALCIUM 6.6 mg/dL (8.5-10.1); CREATININE 1.8 mg/dL (0.55-1.02); EST CRCL DRUG DOSING (CG) 27.29 mL/min; MAGNESIUM 1.7 mg/dL (1.8-2.4); POTASSIUM,K 3.6 mEq/L (3.5-5.1); PROTEIN TOTAL,TP 6.1 g/dl (6.4-8.2)
[2022-10-19 06:09] LABS: EOSINOPHILS PERCENT AUTO 0 (0.7-5.8); HEMATOCRIT 22.9 % (34.1-44.9); LYMPHOCYTES ABSOLUTE AUTO 0.22 K/mm3 (1.18-3.74); MEAN CORPUSCULAR HEMOGLOBIN 34.8 pg (25.6-32.2); MEAN CORPUSCULAR VOLUME 112.3 fl (79.4-94.8); MEAN PLATELET VOLUME 9.2 fl (9.4-12.3); MONOCYTES ABSOLUTE AUTO 0.27 K/mm3 (0.24-0.36); MONOCYTES PERCENT AUTO 25.7 % (4.7-12.5); NEUTROPHILS ABSOLUTE AUTO 0.56 K/mm3 (1.56-6.13); NEUTROPHILS PERCENT AUTO 53.3 % (34.0-71.1); PLATELET COUNT,PLT 126 K/mm3 (182-369); RED BLOOD CELL COUNT 2.04 M/mm3 (3.98-5.22)
[2022-10-19 06:26] LABS: HEMOGLOBIN 7.1 gm/dl (11.2-15.7); WHITE BLOOD CELL COUNT,WBC 1.05 K/mm3 (3.98-10.04)
[2022-10-19] MEDS ORDERED: Sodium Chloride 0.9% 500 ML ONE (08:10)
[2022-10-19 08:28] LABS: SLIDE REVIEW ABNORMAL SMEAR
[2022-10-19] MEDS ORDERED: Fluticasone NASAL Spray 16 GM Bottle NAS PRN (08:36)
[2022-10-19] MEDS ORDERED: ALPRAZolam 0.25 MG Tab PO PRN (08:36)
[2022-10-19] MEDS ORDERED: ALBUTEROL INH PRN (08:36)
[2022-10-19] MEDS ORDERED: Diclofenac Sodium 1% Gel 100 GM Tube TOP PRN (08:36)
[2022-10-19] MEDS ORDERED: Non-Formulary Medication 1 Each (Ferrous Sulfate 325 MG Tablet) PO SCH (08:45)
[2022-10-19] MEDS ORDERED: Non-Formulary Medication 1 Each (Magnesium [Magnesium] 200 MG Tablet) PO SCH (09:00)
[2022-10-19] MEDS ORDERED: Benzonatate 100 MG Cap PO SCH (09:00)
[2022-10-19] MEDS ORDERED: Cyclobenzaprine 10 MG Tab PO SCH (09:00)
[2022-10-19] MEDS ORDERED: Polyethylene Glycol 3350 Powder 17 GM Packet PO SCH (09:00)
[2022-10-19] MEDS ORDERED: Non-Formulary Medication 1 Each (Lactobacillus Acidophilus [Acidophilus] 1 EACH Capsule) PO SCH (09:00)
[2022-10-19] MEDS ORDERED: Sodium Bicarbonate 650 MG Tab PO SCH (09:00)
[2022-10-19] MEDS: Mycophenolate Mofetil 250 MG Cap PO SCH ×2 (10:52→20:34)
[2022-10-19] MEDS: Tacrolimus 1 MG Cap PO SCH ×2 (10:52→20:36)
[2022-10-19] MEDS: Pravastatin 20 MG Tab PO SCH (12:23)
[2022-10-19] MEDS: Furosemide 40 MG Tab PO SCH (12:23)
[2022-10-19] MEDS: Pantoprazole 40 MG Tab.CR PO SCH (12:23)
[2022-10-19] MEDS: Calcitriol 0.25 MCG Cap PO SCH (12:24)
[2022-10-19] MEDS: Metoprolol Tartrate 25 MG Tab PO SCH ×2 (12:24→20:22)
[2022-10-19] MEDS: Aspirin 81 MG Tab.EC PO SCH (12:25)
[2022-10-19] MEDS: Tiotropium BR/Olodaterol HCL 4 GM Inhalation Spray 2.5mcg/1 dose; 10 doses INH SCH (17:05)
[2022-10-19] MEDS: Apixaban 5 MG Tab PO SCH (20:22)
[2022-10-19] MEDS: guaiFENesin 600 MG Tab.ER PO SCH (20:22)
[2022-10-19] MEDS: cefTRIAXone 2 GM in Sodium Chloride 0.9% 100 ML IV SCH (20:22)
[2022-10-19] MEDS: Levofloxacin/Dextrose 5%-Water 50 ML IV SCH (21:47)
[2022-10-20] MEDS: Acetaminophen 325 MG Tab PO PRN ×3 (05:04→19:06)
[2022-10-20] MEDS: Levothyroxine 75 MCG Tab PO SCH (05:05)
[2022-10-20] MEDS: Furosemide 40 MG Tab PO SCH (05:05)
[2022-10-20 06:10] LABS: EOSINOPHILS PERCENT AUTO 0 (0.7-5.8); HEMATOCRIT 26.3 % (34.1-44.9); HEMOGLOBIN 8.3 gm/dl (11.2-15.7); IMMATURE GRAN ABSOLUTE AUTO 0.01 K/mm3 (0.00-0.10); IMMATURE GRAN PERCENT AUTO 1.1 % (<=1.0); LYMPHOCYTES ABSOLUTE AUTO 0.19 K/mm3 (1.18-3.74); LYMPHOCYTES PERCENT AUTO 20.9 % (19.3-51.7); MEAN CORPUSCULAR HEMOGLOBIN 33.5 pg (25.6-32.2); MEAN CORPUSCULAR HGB CONC 31.6 g/dl (32.2-35.5); MEAN PLATELET VOLUME 9.3 fl (9.4-12.3); MONOCYTES ABSOLUTE AUTO 0.31 K/mm3 (0.24-0.36); MONOCYTES PERCENT AUTO 34.1 % (4.7-12.5); NEUTROPHILS PERCENT AUTO 43.9 % (34.0-71.1); PLATELET COUNT,PLT 118 K/mm3 (182-369); RED BLOOD CELL COUNT 2.48 M/mm3 (3.98-5.22)
[2022-10-20 06:25] LABS: ANION GAP 22.7 (5-15); BUN/CREATININE RATIO 28.1 (14-18); CALCIUM 7.4 mg/dL (8.5-10.1); CREATININE 1.6 mg/dL (0.55-1.02); EST CRCL DRUG DOSING (CG) 30.7 mL/min; POTASSIUM,K 3.7 mEq/L (3.5-5.1)
[2022-10-20 06:30] LABS: WHITE BLOOD CELL COUNT,WBC 0.91 K/mm3 (3.98-10.04)
[2022-10-20 07:05] LABS: SLIDE REVIEW ABNORMAL SMEAR
[2022-10-20] MEDS: Tiotropium BR/Olodaterol HCL 4 GM Inhalation Spray 2.5mcg/1 dose; 10 doses INH SCH (08:40)
[2022-10-20] MEDS: Pantoprazole 40 MG Tab.CR PO SCH (09:04)
[2022-10-20] MEDS: Apixaban 5 MG Tab PO SCH ×2 (09:04→20:23)
[2022-10-20] MEDS: Metoprolol Tartrate 25 MG Tab PO SCH ×2 (09:05→20:21)
[2022-10-20] MEDS: Tacrolimus 1 MG Cap PO SCH ×2 (09:06→20:25)
[2022-10-20] MEDS: Pravastatin 20 MG Tab PO SCH (09:07)
[2022-10-20] MEDS: Mycophenolate Mofetil 250 MG Cap PO SCH ×2 (09:07→20:24)
[2022-10-20] MEDS: Aspirin 81 MG Tab.EC PO SCH (09:07)
[2022-10-20] MEDS: guaiFENesin 600 MG Tab.ER PO SCH (20:23)
[2022-10-20] MEDS: cefTRIAXone 2 GM in Sodium Chloride 0.9% 100 ML IV SCH (20:27)
[2022-10-20] MEDS ORDERED: Levofloxacin/Dextrose 5%-Water 50 ML IV SCH (21:00)
[2022-10-20] MEDS: Levofloxacin/Dextrose 5%-Water 50 ML IV SCH (21:43)
[2022-10-21] MEDS: Acetaminophen 325 MG Tab PO PRN ×3 (01:20→12:40)
[2022-10-21] MEDS: Furosemide 40 MG Tab PO SCH (06:20)
[2022-10-21] MEDS: Levothyroxine 75 MCG Tab PO SCH (06:20)
[2022-10-21 06:58] LABS: EOSINOPHILS ABSOLUTE AUTO 0.01 K/mm3 (0.04-0.36); EOSINOPHILS PERCENT AUTO 1.3 (0.7-5.8); HEMATOCRIT 26.6 % (34.1-44.9); HEMOGLOBIN 8.5 gm/dl (11.2-15.7); LYMPHOCYTES ABSOLUTE AUTO 0.21 K/mm3 (1.18-3.74); LYMPHOCYTES PERCENT AUTO 26.6 % (19.3-51.7); MEAN CORPUSCULAR HEMOGLOBIN 33.5 pg (25.6-32.2); MEAN CORPUSCULAR VOLUME 104.7 fl (79.4-94.8); MEAN PLATELET VOLUME 8.5 fl (9.4-12.3); MONOCYTES ABSOLUTE AUTO 0.32 K/mm3 (0.24-0.36); MONOCYTES PERCENT AUTO 40.5 % (4.7-12.5); NEUTROPHILS ABSOLUTE AUTO 0.25 K/mm3 (1.56-6.13); NEUTROPHILS PERCENT AUTO 31.6 % (34.0-71.1); PLATELET COUNT,PLT 116 K/mm3 (182-369); RED BLOOD CELL COUNT 2.54 M/mm3 (3.98-5.22)
[2022-10-21 07:13] LABS: ANION GAP 19.3 (5-15); BUN/CREATININE RATIO 25.4 (14-18); CALCIUM 7.8 mg/dL (8.5-10.1); CREATININE 1.3 mg/dL (0.55-1.02); EST CRCL DRUG DOSING (CG) 37.79 mL/min; POTASSIUM,K 3.3 mEq/L (3.5-5.1)
[2022-10-21 07:16] LABS: WHITE BLOOD CELL COUNT,WBC 0.79 K/mm3 (3.98-10.04)
[2022-10-21 07:56] LABS: SLIDE REVIEW ABNORMAL SMEAR
[2022-10-21] MEDS: Tiotropium BR/Olodaterol HCL 4 GM Inhalation Spray 2.5mcg/1 dose; 10 doses INH SCH (08:40)
[2022-10-21] MEDS: Pravastatin 20 MG Tab PO SCH (08:47)
[2022-10-21] MEDS: Aspirin 81 MG Tab.EC PO SCH (08:48)
[2022-10-21] MEDS: Metoprolol Tartrate 25 MG Tab PO SCH (08:48)
[2022-10-21] MEDS: Pantoprazole 40 MG Tab.CR PO SCH (08:48)
[2022-10-21] MEDS: Apixaban 5 MG Tab PO SCH (08:48)
[2022-10-21] MEDS: Calcitriol 0.25 MCG Cap PO SCH (08:49)
[2022-10-21] MEDS: Mycophenolate Mofetil 250 MG Cap PO SCH (08:52)
[2022-10-21] MEDS: Tacrolimus 1 MG Cap PO SCH (08:53)
[2022-10-21] MEDS ORDERED: Metoprolol Tartrate 50 MG Tab PO SCH (09:00)
[2022-10-21 12:18] VITALS: BP 120/79; PULSE 110
== END 2022-10-21 14:00 | disposition home or self-care (01) | DRG 872 ==
LOC: JD.ED 17:10 → JD.MS 20:38
PROVIDERS: ADMIT Hospitalist; ATTEND Hospitalist
DX: A41.51 Sepsis due to Escherichia coli [E. coli] (principal); N39.0 Urinary tract infection, site not specified; A41.9 Sepsis, unspecified organism; N17.9 Acute kidney failure, unspecified; D61.818 Other pancytopenia; D84.9 Immunodeficiency, unspecified; Z94.4 Liver transplant status; R65.20 Severe sepsis without septic shock; I25.10 Atherosclerotic heart disease of native coronary artery without angina pectoris; Z20.822 Contact with and (suspected) exposure to COVID-19; E78.5 Hyperlipidemia, unspecified; I48.91 Unspecified atrial fibrillation; I12.9 Hypertensive chronic kidney disease with stage 1 through stage 4 chronic kidney disease, or unspecified chronic kidney disease; G43.909 Migraine, unspecified, not intractable, without status migrainosus; M19.90 Unspecified osteoarthritis, unspecified site; E11.22 Type 2 diabetes mellitus with diabetic chronic kidney disease; N18.9 Chronic kidney disease, unspecified; E03.9 Hypothyroidism, unspecified; F32.A Depression, unspecified; K70.30 Alcoholic cirrhosis of liver without ascites; K70.10 Alcoholic hepatitis without ascites; Z88.0 Allergy status to penicillin; E78.00 Pure hypercholesterolemia, unspecified; K21.9 Gastro-esophageal reflux disease without esophagitis; F12.10 Cannabis abuse, uncomplicated; I25.2 Old myocardial infarction; Z79.4 Long term (current) use of insulin; Z97.3 Presence of spectacles and contact lenses; Z86.2 Personal history of diseases of the blood and blood-forming organs and certain disorders involving the immune mechanism; Z98.84 Bariatric surgery status; Z79.82 Long term (current) use of aspirin; Z86.16 Personal history of COVID-19; Z86.14 Personal history of Methicillin resistant Staphylococcus aureus infection; Z87.01 Personal history of pneumonia (recurrent); Z79.01 Long term (current) use of anticoagulants; Z79.890 Hormone replacement therapy; Z79.899 Other long term (current) drug therapy; Z95.1 Presence of aortocoronary bypass graft; Z87.891 Personal history of nicotine dependence
CPT/HCPCS: 36415; 71046; 71250; 80053; 81001; 83605; 85007; 85027; 85610; 86140; 87040 ×2; 87077; 87086; 87088; 87186 ×2; 96361; 96365; 99285; A9270; J0696; J3490 ×2; J7030 ×2; U0002; 36430; 80048; 82947; 83735; 85025; 86850; 86900; 86901; 86922; 94640; 94760; 99222; 99232; 99239; J1644; J1956; J7040; J7507; P9016

== ENCOUNTER 2023-10-06 12:44 | Emergency (ER) | payer MEDICARE, BC ==
[2023-10-06 12:54] VITALS: BP 123/87; PULSE 74
[2023-10-06] MEDS ORDERED: Magnesium Sulfate (4.06 MEQ/ML) 5 GM/10 ML SDV IV STA (12:55)
[2023-10-06] MEDS: methylPREDNISolone Sodium Succinate 125 MG/2 ML SDV IVPUSH ONE (13:29)
[2023-10-06] MEDS: Magnesium Sulfate/Water 2 GM in Premix Bag 1 BAG IV ONE (13:29)
[2023-10-06] MEDS: Albuterol/Ipratropium 3.0-0.5 MG/3 ML Neb Soln NEB ONE ×2 (13:32→16:39)
[2023-10-06 13:36] LABS: BASOPHILS PERCENT AUTO 0.3 % (0.0-1.0); EOSINOPHILS PERCENT AUTO 0.9 % (0.0-6.0); HEMATOCRIT 29.9 % (37.0-47.0); IMMATURE GRAN ABSOLUTE AUTO 0.09 K/mm3 (0.00-0.05); IMMATURE GRAN PERCENT AUTO 2.6 % (0.0-0.4); LYMPHOCYTES ABSOLUTE AUTO 0.3 K/mm3 (1.0-4.8); LYMPHOCYTES PERCENT AUTO 8.5 % (24.0-44.0); MEAN CORPUSCULAR HEMOGLOBIN 30.9 pg (28.0-32.0); MEAN CORPUSCULAR HGB CONC 33.4 g/dl (32.0-36.0); MEAN CORPUSCULAR VOLUME 92.3 fl (83.0-99.0); MONOCYTES ABSOLUTE AUTO 0.6 K/mm3 (0.0-0.8); MONOCYTES PERCENT AUTO 17.4 % (0.0-8.0); NEUTROPHILS ABSOLUTE AUTO 2.4 K/mm3 (1.8-7.7); NEUTROPHILS PERCENT AUTO 70.3 % (41.0-71.0); PLATELET COUNT,PLT 76 K/mm3 (150-400); RED BLOOD CELL COUNT 3.24 M/mm3 (4.10-5.30)
[2023-10-06 13:50] LABS: A/G RATIO 1.1 (1-2); ANION GAP 18.5 (5-15); BILIRUBIN TOTAL 0.4 mg/dL (0.2-1.0); BUN/CREATININE RATIO 22.9 (14-18); CALCIUM 8.3 mg/dL (8.5-10.1); CREATININE 5.5 mg/dL (0.55-1.02); EST CRCL DRUG DOSING (CG) 8.81 mL/min; MAGNESIUM 2.1 mg/dL (1.8-2.4); POTASSIUM,K 4.5 mEq/L (3.5-5.1); PROTEIN TOTAL,TP 5.8 g/dl (6.4-8.2)
[2023-10-06 14:38] LABS: CORONAVIRUS COVID-19 NAA NEGATIVE (NEGATIVE); INFLUENZA A NAA NEGATIVE (NEGATIVE); RESPIRATORY SYNCYTIAL VIR NAA NEGATIVE (NEGATIVE)
[2023-10-06 14:48] LABS: SLIDE REVIEW ABNORMAL SMEAR
[2023-10-06 14:55] LABS: BASE EXCESS VENOUS -9.1 (-4.0-2.0); BICARBONATE,VENOUS 16.4 meq/L (22-26); O2 SATURATION VENOUS 31.7; PH,VENOUS 7.28 (7.30-7.40)
[2023-10-06] MEDS: Sodium Chloride 0.9% 1,000 ML IV ONE ×2 (15:22→16:46)
[2023-10-06 16:38] LABS: APPEARANCE,URINE CLEAR (Clear); BILIRUBIN,URINE NEGATIVE (Negative); COLOR,URINE LIGHT YELLOW (Yellow); GLUCOSE,URINE TRACE (Negative); KETONES,URINE NEGATIVE (Negative); LEUKOCYTE ESTERASE,URINE TRACE (Negative); NITRITE,URINE NEGATIVE (Negative); OCCULT BLOOD,URINE NEGATIVE (Negative); PH,URINE 5.5 (5.0-8.0); PROTEIN,URINE NEGATIVE (Negative); UROBILINOGEN,URINE 0.2 (0.2-1.0)
[2023-10-06 17:17] LABS: BACTERIA,URINE RARE /hpf (FEW); MUCUS,URINE NOT SEEN /hpf (FEW); RBC,URINE 0-5 /hpf (0-5); SQUAMOUS EPITHELIAL CELLS,UR 0-5 /hpf (0-5)
[2023-10-06] MEDS: Insulin Regular, Human 100 Units/ML 10 ML Vial SUBCUT ONE (18:34)
== END 2023-10-06 21:33 ==
LOC: JD.ED 12:44
DX: J44.1 Chronic obstructive pulmonary disease with (acute) exacerbation (principal); N17.9 Acute kidney failure, unspecified; I12.9 Hypertensive chronic kidney disease with stage 1 through stage 4 chronic kidney disease, or unspecified chronic kidney disease; N18.9 Chronic kidney disease, unspecified; E11.22 Type 2 diabetes mellitus with diabetic chronic kidney disease; E11.65 Type 2 diabetes mellitus with hyperglycemia; E78.00 Pure hypercholesterolemia, unspecified; K21.9 Gastro-esophageal reflux disease without esophagitis; E03.9 Hypothyroidism, unspecified; Z86.16 Personal history of COVID-19; Z79.899 Other long term (current) drug therapy; Z79.82 Long term (current) use of aspirin; Z88.0 Allergy status to penicillin
CPT/HCPCS: 0241U; 36415; 71045; 80053; 81001; 82803; 82947; 83735; 84484; 85025; 87086; 93005; 94640; 96361; 96365; 96366; 96375; 99285; J1815; J2919; J3475; J7030; 87088; 87186; J7620-GY

== ENCOUNTER 2023-10-20 16:54 | Inpatient (IN) | payer MEDICARE, BC ==
[2023-10-20 18:01] LABS: HEMATOCRIT 21.6 % (37.0-47.0); IMMATURE GRAN ABSOLUTE AUTO 0.02 K/mm3 (0.00-0.05); LYMPHOCYTES ABSOLUTE AUTO 0.2 K/mm3 (1.0-4.8); LYMPHOCYTES PERCENT AUTO 10.7 % (24.0-44.0); MEAN CORPUSCULAR HEMOGLOBIN 30.2 pg (28.0-32.0); MEAN CORPUSCULAR HGB CONC 32.4 g/dl (32.0-36.0); MEAN CORPUSCULAR VOLUME 93.1 fl (83.0-99.0); MONOCYTES ABSOLUTE AUTO 0.5 K/mm3 (0.0-0.8); MONOCYTES PERCENT AUTO 24.9 % (0.0-8.0); NEUTROPHILS ABSOLUTE AUTO 1.3 K/mm3 (1.8-7.7); NEUTROPHILS PERCENT AUTO 63.4 % (41.0-71.0); PLATELET COUNT,PLT 38 K/mm3 (150-400); RED BLOOD CELL COUNT 2.32 M/mm3 (4.10-5.30)
[2023-10-20] MEDS: HYDROmorphone 0.5 MG/0.5 ML Syringe IVPUSH ONE (18:06)
[2023-10-20] MEDS: Sodium Chloride 0.9% 10 ML Syringe FLUSH PRN (18:08)
[2023-10-20 18:21] LABS: ALBUMIN 3.3 g/dl (3.4-5.0); ANION GAP 18.5 (5-15); BILIRUBIN TOTAL 0.8 mg/dL (0.2-1.0); BUN/CREATININE RATIO 27.7 (14-18); EST CRCL DRUG DOSING (CG) 16.15 mL/min; MAGNESIUM 1.8 mg/dL (1.8-2.4); POTASSIUM,K 3.5 mEq/L (3.5-5.1); PROTEIN TOTAL,TP 6.5 g/dl (6.4-8.2)
[2023-10-20 19:07] LABS: WHITE BLOOD CELL COUNT,WBC 2.05 K/mm3 (3.9-11.3)
[2023-10-20 19:59] LABS: BASE EXCESS VENOUS 0.4 (-4.0-2.0); BICARBONATE,VENOUS 23.2 meq/L (22-26); O2 SATURATION VENOUS 87.3; PCO2 VENOUS 30.9 mmHg (41-51); PH,VENOUS 7.49 (7.30-7.40)
[2023-10-20] MEDS: Sodium Chloride 0.9% 500 ML IV ONE (20:05)
[2023-10-21] MEDS: Metoprolol Tartrate 50 MG Tab PO ONE (03:55)
[2023-10-21 06:18] LABS: HEMATOCRIT 18.9 % (37.0-47.0); IMMATURE GRAN ABSOLUTE AUTO 0.02 K/mm3 (0.00-0.05); IMMATURE GRAN PERCENT AUTO 1.1 % (0.0-0.4); LYMPHOCYTES ABSOLUTE AUTO 0.3 K/mm3 (1.0-4.8); LYMPHOCYTES PERCENT AUTO 14.3 % (24.0-44.0); MEAN CORPUSCULAR HEMOGLOBIN 30.4 pg (28.0-32.0); MEAN CORPUSCULAR HGB CONC 32.8 g/dl (32.0-36.0); MEAN CORPUSCULAR VOLUME 92.6 fl (83.0-99.0); MEAN PLATELET VOLUME 12.6 fl (9.4-12.3); MONOCYTES ABSOLUTE AUTO 0.5 K/mm3 (0.0-0.8); NEUTROPHILS PERCENT AUTO 56.6 % (41.0-71.0); PLATELET COUNT,PLT 31 K/mm3 (150-400); RED BLOOD CELL COUNT 2.04 M/mm3 (4.10-5.30)
[2023-10-21 06:21] LABS: HEMOGLOBIN 6.2 gm/dl (12.0-16.0); WHITE BLOOD CELL COUNT,WBC 1.75 K/mm3 (3.9-11.3)
[2023-10-21 06:47] LABS: APPEARANCE,URINE CLEAR (Clear); BILIRUBIN,URINE NEGATIVE (Negative); COLOR,URINE YELLOW (Yellow); GLUCOSE,URINE TRACE (Negative); KETONES,URINE NEGATIVE (Negative); LEUKOCYTE ESTERASE,URINE TRACE (Negative); NITRITE,URINE NEGATIVE (Negative); OCCULT BLOOD,URINE 2+ (Negative); PROTEIN,URINE 1+ (Negative); UROBILINOGEN,URINE 0.2 (0.2-1.0)
[2023-10-21 07:02] LABS: A/G RATIO 0.9 (1-2); ALBUMIN 2.7 g/dl (3.4-5.0); ANION GAP 15.5 (5-15); BILIRUBIN TOTAL 0.6 mg/dL (0.2-1.0); BUN/CREATININE RATIO 27.9 (14-18); CALCIUM 8.6 mg/dL (8.5-10.1); CREATININE 2.8 mg/dL (0.55-1.02); EST CRCL DRUG DOSING (CG) 17.3 mL/min; MAGNESIUM 1.6 mg/dL (1.8-2.4); POTASSIUM,K 3.5 mEq/L (3.5-5.1); PROTEIN TOTAL,TP 5.6 g/dl (6.4-8.2)
[2023-10-21 07:16] LABS: BACTERIA,URINE MODERATE /hpf (FEW); EPITHELIAL CELLS,URINE 0-5 /hpf (0-5); MUCUS,URINE RARE /hpf (FEW); WBC,URINE 0-5 /hpf (0-5)
[2023-10-21 07:26] LABS: SLIDE REVIEW ABNORMAL SMEAR
[2023-10-21] MEDS: Sodium Chloride 0.9% 1,000 ML IV SCH (07:50)
[2023-10-21] MEDS ORDERED: ALPRAZolam 0.5 MG Tab PO PRN (10:20)
[2023-10-21] MEDS ORDERED: Magnesium Sulfate (4.06 MEQ/ML) 5 GM/10 ML SDV IV ONE (11:00)
[2023-10-21] MEDS: Aspirin 81 MG Tab.EC PO SCH (11:30)
[2023-10-21] MEDS: Pravastatin 20 MG Tab PO SCH (11:30)
[2023-10-21] MEDS: Acetaminophen 325 MG Tab PO ONE (11:30)
[2023-10-21] MEDS: Magnesium Sulfate/Water 2 GM in Premix Bag 1 BAG IV ONE (11:30)
[2023-10-21] MEDS: Insulin Lispro 100 Unit/ML 3 ML KwikPen SUBCUT SCH (11:30)
[2023-10-21] MEDS: Sodium Chloride 0.9% 250 ML IV SCH (11:30)
[2023-10-21] MEDS ORDERED: Non-Formulary Medication 1 Each PO PRN (14:29)
[2023-10-21] MEDS: Benzonatate 100 MG Cap PO SCH (16:20)
[2023-10-21] MEDS: Metoprolol Tartrate 50 MG Tab PO SCH (20:05)
[2023-10-21] MEDS: Sodium Bicarbonate 650 MG Tab PO SCH (20:05)
[2023-10-21 20:36] LABS: HEMATOCRIT 24.3 % (37.0-47.0)
[2023-10-21 20:44] LABS: HEMOGLOBIN 8.2 gm/dl (12.0-16.0)
[2023-10-21] MEDS ORDERED: Furosemide 40 MG Tab PO SCH (21:00)
[2023-10-22] MEDS: Acetaminophen 325 MG Tab PO PRN (01:43)
[2023-10-22 05:54] LABS: HEMATOCRIT 21.8 % (37.0-47.0); IMMATURE GRAN ABSOLUTE AUTO 0.02 K/mm3 (0.00-0.05); IMMATURE GRAN PERCENT AUTO 1.1 % (0.0-0.4); LYMPHOCYTES ABSOLUTE AUTO 0.2 K/mm3 (1.0-4.8); LYMPHOCYTES PERCENT AUTO 12.6 % (24.0-44.0); MEAN CORPUSCULAR HEMOGLOBIN 30.1 pg (28.0-32.0); MEAN CORPUSCULAR HGB CONC 33.9 g/dl (32.0-36.0); MEAN PLATELET VOLUME 13.6 fl (9.4-12.3); MONOCYTES ABSOLUTE AUTO 0.5 K/mm3 (0.0-0.8); MONOCYTES PERCENT AUTO 25.9 % (0.0-8.0); NEUTROPHILS ABSOLUTE AUTO 1.1 K/mm3 (1.8-7.7); NEUTROPHILS PERCENT AUTO 60.4 % (41.0-71.0); PLATELET COUNT,PLT 34 K/mm3 (150-400); RED BLOOD CELL COUNT 2.46 M/mm3 (4.10-5.30)
[2023-10-22 05:57] LABS: HEMOGLOBIN 7.4 gm/dl (12.0-16.0); WHITE BLOOD CELL COUNT,WBC 1.74 K/mm3 (3.9-11.3)
[2023-10-22 05:58] LABS: MEAN CORPUSCULAR VOLUME 88.6 fl (83.0-99.0)
[2023-10-22] MEDS: Levothyroxine 75 MCG Tab PO SCH (06:06)
[2023-10-22] MEDS: Pantoprazole 40 MG Tab.CR PO SCH (06:07)
[2023-10-22 06:11] LABS: A/G RATIO 0.8 (1-2); ALBUMIN 2.4 g/dl (3.4-5.0); ANION GAP 14.2 (5-15); BILIRUBIN TOTAL 0.7 mg/dL (0.2-1.0); BUN/CREATININE RATIO 25.2 (14-18); CALCIUM 8.7 mg/dL (8.5-10.1); CREATININE 2.3 mg/dL (0.55-1.02); EST CRCL DRUG DOSING (CG) 21.06 mL/min; POTASSIUM,K 3.2 mEq/L (3.5-5.1); PROTEIN TOTAL,TP 5.5 g/dl (6.4-8.2)
[2023-10-22 06:21] LABS: SLIDE REVIEW ABNORMAL SMEAR
[2023-10-22] MEDS: Potassium Chloride 20 MEQ Tab.ER PO ONE (08:21)
[2023-10-22 21:02] LABS: HEMATOCRIT 25.4 % (37.0-47.0); HEMOGLOBIN 8.4 gm/dl (12.0-16.0)
[2023-10-23 05:58] LABS: HEMATOCRIT 23.4 % (37.0-47.0); HEMOGLOBIN 7.8 gm/dl (12.0-16.0); IMMATURE GRAN ABSOLUTE AUTO 0.01 K/mm3 (0.00-0.05); IMMATURE GRAN PERCENT AUTO 0.6 % (0.0-0.4); LYMPHOCYTES ABSOLUTE AUTO 0.3 K/mm3 (1.0-4.8); LYMPHOCYTES PERCENT AUTO 14.7 % (24.0-44.0); MEAN CORPUSCULAR HEMOGLOBIN 30.6 pg (28.0-32.0); MEAN CORPUSCULAR HGB CONC 33.3 g/dl (32.0-36.0); MEAN PLATELET VOLUME 11.2 fl (9.4-12.3); MONOCYTES ABSOLUTE AUTO 0.4 K/mm3 (0.0-0.8); MONOCYTES PERCENT AUTO 21.2 % (0.0-8.0); NEUTROPHILS ABSOLUTE AUTO 1.1 K/mm3 (1.8-7.7); NEUTROPHILS PERCENT AUTO 63.5 % (41.0-71.0); PLATELET COUNT,PLT 34 K/mm3 (150-400); RED BLOOD CELL COUNT 2.55 M/mm3 (4.10-5.30)
[2023-10-23 06:06] LABS: MEAN CORPUSCULAR VOLUME 91.8 fl (83.0-99.0)
[2023-10-23 06:17] LABS: SLIDE REVIEW ABNORMAL SMEAR
[2023-10-23 06:26] LABS: A/G RATIO 0.7 (1-2); ALBUMIN 2.2 g/dl (3.4-5.0); ANION GAP 15.8 (5-15); BILIRUBIN TOTAL 0.8 mg/dL (0.2-1.0); BUN/CREATININE RATIO 20.5 (14-18); CALCIUM 8.4 mg/dL (8.5-10.1); CREATININE 1.9 mg/dL (0.55-1.02); EST CRCL DRUG DOSING (CG) 25.5 mL/min; MAGNESIUM 1.9 mg/dL (1.8-2.4); POTASSIUM,K 3.8 mEq/L (3.5-5.1); PROTEIN TOTAL,TP 5.4 g/dl (6.4-8.2)
[2023-10-23] MEDS: predniSONE 20 MG Tab PO SCH (08:28)
[2023-10-23] MEDS: Calcitriol 0.25 MCG Cap PO SCH (08:29)
[2023-10-23] MEDS: Ferrous Sulfate 324 MG Tab.EC PO SCH (08:29)
[2023-10-24 06:35] LABS: BASOPHILS PERCENT AUTO 0.6 % (0.0-1.0); HEMATOCRIT 24.2 % (37.0-47.0); HEMOGLOBIN 7.8 gm/dl (12.0-16.0); IMMATURE GRAN ABSOLUTE AUTO 0.01 K/mm3 (0.00-0.05); IMMATURE GRAN PERCENT AUTO 0.6 % (0.0-0.4); LYMPHOCYTES ABSOLUTE AUTO 0.3 K/mm3 (1.0-4.8); LYMPHOCYTES PERCENT AUTO 17.5 % (24.0-44.0); MEAN CORPUSCULAR HGB CONC 32.2 g/dl (32.0-36.0); MEAN CORPUSCULAR VOLUME 93.1 fl (83.0-99.0); MEAN PLATELET VOLUME 11.8 fl (9.4-12.3); MONOCYTES ABSOLUTE AUTO 0.4 K/mm3 (0.0-0.8); MONOCYTES PERCENT AUTO 22.8 % (0.0-8.0); NEUTROPHILS PERCENT AUTO 58.5 % (41.0-71.0); PLATELET COUNT,PLT 46 K/mm3 (150-400)
[2023-10-24 06:47] LABS: WHITE BLOOD CELL COUNT,WBC 1.71 K/mm3 (3.9-11.3)
[2023-10-24 07:05] LABS: ANION GAP 17.2 (5-15); BUN/CREATININE RATIO 19.5 (14-18); CREATININE 2.1 mg/dL (0.55-1.02); EST CRCL DRUG DOSING (CG) 23.07 mL/min; POTASSIUM,K 4.2 mEq/L (3.5-5.1)
[2023-10-24 07:11] LABS: SLIDE REVIEW ABNORMAL SMEAR
[2023-10-24] MEDS: Insulin Glargine,Human Rec. Analog 100 Units/ML 3 ML Pen SUBCUT SCH (08:19)
[2023-10-24] MEDS: LENALIDOMIDE 2.5 MG PO SCH (08:26)
[2023-10-24] MEDS: Metoprolol Tartrate 25 MG Tab PO ONE (08:59)
[2023-10-24] MEDS: Nystatin Susp 100,000 Unit/ML 5 ML UD Cup PO SCH (16:00)
[2023-10-25 06:39] LABS: BASOPHILS PERCENT AUTO 0.8 % (0.0-1.0); EOSINOPHILS PERCENT AUTO 0.8 % (0.0-6.0); HEMOGLOBIN 7.7 gm/dl (12.0-16.0); IMMATURE GRAN ABSOLUTE AUTO 0.01 K/mm3 (0.00-0.05); IMMATURE GRAN PERCENT AUTO 0.8 % (0.0-0.4); LYMPHOCYTES ABSOLUTE AUTO 0.3 K/mm3 (1.0-4.8); LYMPHOCYTES PERCENT AUTO 20.8 % (24.0-44.0); MEAN CORPUSCULAR HGB CONC 32.1 g/dl (32.0-36.0); MEAN CORPUSCULAR VOLUME 93.4 fl (83.0-99.0); MONOCYTES ABSOLUTE AUTO 0.2 K/mm3 (0.0-0.8); MONOCYTES PERCENT AUTO 16.8 % (0.0-8.0); NEUTROPHILS ABSOLUTE AUTO 0.8 K/mm3 (1.8-7.7); PLATELET COUNT,PLT 52 K/mm3 (150-400); RED BLOOD CELL COUNT 2.57 M/mm3 (4.10-5.30)
[2023-10-25 06:51] LABS: WHITE BLOOD CELL COUNT,WBC 1.25 K/mm3 (3.9-11.3)
[2023-10-25 07:18] LABS: BUN/CREATININE RATIO 20.6 (14-18); CALCIUM 8.8 mg/dL (8.5-10.1); CREATININE 1.7 mg/dL (0.55-1.02); EST CRCL DRUG DOSING (CG) 28.5 mL/min
[2023-10-25 07:44] LABS: SLIDE REVIEW ABNORMAL SMEAR
[2023-10-25] MEDS: Insulin Glargine,Human Rec. Analog 100 Units/ML 3 ML Pen SUBCUT SCH (08:03)
[2023-10-26 06:07] LABS: BASOPHILS PERCENT AUTO 1.2 % (0.0-1.0); EOSINOPHILS PERCENT AUTO 2.4 % (0.0-6.0); HEMATOCRIT 23.9 % (37.0-47.0); HEMOGLOBIN 7.5 gm/dl (12.0-16.0); IMMATURE GRAN ABSOLUTE AUTO 0.02 K/mm3 (0.00-0.05); IMMATURE GRAN PERCENT AUTO 2.4 % (0.0-0.4); LYMPHOCYTES ABSOLUTE AUTO 0.2 K/mm3 (1.0-4.8); LYMPHOCYTES PERCENT AUTO 25.9 % (24.0-44.0); MEAN CORPUSCULAR HEMOGLOBIN 29.6 pg (28.0-32.0); MEAN CORPUSCULAR HGB CONC 31.4 g/dl (32.0-36.0); MEAN CORPUSCULAR VOLUME 94.5 fl (83.0-99.0); MEAN PLATELET VOLUME 12.4 fl (9.4-12.3); MONOCYTES ABSOLUTE AUTO 0.2 K/mm3 (0.0-0.8); MONOCYTES PERCENT AUTO 21.2 % (0.0-8.0); NEUTROPHILS ABSOLUTE AUTO 0.4 K/mm3 (1.8-7.7); NEUTROPHILS PERCENT AUTO 46.9 % (41.0-71.0); PLATELET COUNT,PLT 55 K/mm3 (150-400); RED BLOOD CELL COUNT 2.53 M/mm3 (4.10-5.30)
[2023-10-26 06:19] LABS: WHITE BLOOD CELL COUNT,WBC 0.85 K/mm3 (3.9-11.3)
[2023-10-26 06:32] LABS: ANION GAP 13.9 (5-15); BUN/CREATININE RATIO 21.9 (14-18); CALCIUM 8.5 mg/dL (8.5-10.1); CREATININE 1.6 mg/dL (0.55-1.02); EST CRCL DRUG DOSING (CG) 30.28 mL/min; POTASSIUM,K 3.9 mEq/L (3.5-5.1)
[2023-10-26 06:50] LABS: SLIDE REVIEW ABNORMAL SMEAR
[2023-10-26] MEDS: Insulin Glargine,Human Rec. Analog 100 Units/ML 3 ML Pen SUBCUT SCH ×2 (08:06→20:31)
[2023-10-26] MEDS: LENALIDOMIDE 2.5 MG PO SCH (08:52)
[2023-10-27 06:36] LABS: BASOPHILS PERCENT AUTO 4.1 % (0.0-1.0); EOSINOPHILS PERCENT AUTO 2.7 % (0.0-6.0); HEMATOCRIT 22.4 % (37.0-47.0); IMMATURE GRAN ABSOLUTE AUTO 0.05 K/mm3 (0.00-0.05); IMMATURE GRAN PERCENT AUTO 6.8 % (0.0-0.4); LYMPHOCYTES ABSOLUTE AUTO 0.2 K/mm3 (1.0-4.8); LYMPHOCYTES PERCENT AUTO 31.5 % (24.0-44.0); MEAN CORPUSCULAR HEMOGLOBIN 29.8 pg (28.0-32.0); MEAN CORPUSCULAR HGB CONC 32.1 g/dl (32.0-36.0); MEAN CORPUSCULAR VOLUME 92.6 fl (83.0-99.0); MEAN PLATELET VOLUME 12.5 fl (9.4-12.3); MONOCYTES ABSOLUTE AUTO 0.1 K/mm3 (0.0-0.8); MONOCYTES PERCENT AUTO 16.4 % (0.0-8.0); NEUTROPHILS ABSOLUTE AUTO 0.3 K/mm3 (1.8-7.7); NEUTROPHILS PERCENT AUTO 38.5 % (41.0-71.0); PLATELET COUNT,PLT 56 K/mm3 (150-400); RED BLOOD CELL COUNT 2.42 M/mm3 (4.10-5.30)
[2023-10-27 08:09] LABS: HEMOGLOBIN 7.2 gm/dl (12.0-16.0); WHITE BLOOD CELL COUNT,WBC 0.73 K/mm3 (3.9-11.3)
[2023-10-27 11:19] LABS: SLIDE REVIEW ABNORMAL SMEAR
[2023-10-28 05:49] LABS: BASOPHILS PERCENT AUTO 3.3 % (0.0-1.0); EOSINOPHILS PERCENT AUTO 2.2 % (0.0-6.0); HEMATOCRIT 22.8 % (37.0-47.0); IMMATURE GRAN ABSOLUTE AUTO 0.02 K/mm3 (0.00-0.05); IMMATURE GRAN PERCENT AUTO 2.2 % (0.0-0.4); LYMPHOCYTES ABSOLUTE AUTO 0.4 K/mm3 (1.0-4.8); LYMPHOCYTES PERCENT AUTO 42.9 % (24.0-44.0); MEAN CORPUSCULAR HEMOGLOBIN 30.3 pg (28.0-32.0); MEAN CORPUSCULAR VOLUME 94.6 fl (83.0-99.0); MEAN PLATELET VOLUME 14.1 fl (9.4-12.3); MONOCYTES ABSOLUTE AUTO 0.1 K/mm3 (0.0-0.8); MONOCYTES PERCENT AUTO 15.4 % (0.0-8.0); NEUTROPHILS ABSOLUTE AUTO 0.3 K/mm3 (1.8-7.7); PLATELET COUNT,PLT 38 K/mm3 (150-400); RED BLOOD CELL COUNT 2.41 M/mm3 (4.10-5.30)
[2023-10-28 05:52] LABS: HEMOGLOBIN 7.3 gm/dl (12.0-16.0); WHITE BLOOD CELL COUNT,WBC 0.91 K/mm3 (3.9-11.3)
[2023-10-28 06:14] LABS: SLIDE REVIEW ABNORMAL SMEAR
[2023-10-28 11:50] VITALS: BP 110/71; PULSE 79
== END 2023-10-28 11:45 | disposition home or self-care (01) | DRG 809 ==
LOC: JD.ED 16:54 → JD.MS 22:48
PROVIDERS: ADMIT Family Medicine; ATTEND Internal Medicine
PROC: 30233N1 Transfusion of Nonautologous Red Blood Cells into Peripheral Vein, Percutaneous Approach (ICD-10-PCS; principal; 2023-10-21)
PROC: 30233N1 Transfusion of Nonautologous Red Blood Cells into Peripheral Vein, Percutaneous Approach (ICD-10-PCS; 2023-10-22)
DX: R53.1 Weakness (principal); D61.818 Other pancytopenia; D64.9 Anemia, unspecified; D72.819 Decreased white blood cell count, unspecified; D84.821 Immunodeficiency due to drugs; E87.1 Hypo-osmolality and hyponatremia; N17.9 Acute kidney failure, unspecified; I10 Essential (primary) hypertension; Z94.0 Kidney transplant status; N18.4 Chronic kidney disease, stage 4 (severe); I48.20 Chronic atrial fibrillation, unspecified; R64 Cachexia; Z94.4 Liver transplant status; Z86.16 Personal history of COVID-19; D46.9 Myelodysplastic syndrome, unspecified; I25.10 Atherosclerotic heart disease of native coronary artery without angina pectoris; Z66 Do not resuscitate; Z79.1 Long term (current) use of non-steroidal anti-inflammatories (NSAID); Z95.1 Presence of aortocoronary bypass graft; E11.65 Type 2 diabetes mellitus with hyperglycemia; I25.2 Old myocardial infarction; K21.9 Gastro-esophageal reflux disease without esophagitis; K74.60 Unspecified cirrhosis of liver; Y92.002 Bathroom of unspecified non-institutional (private) residence as the place of occurrence of the external cause; F32.A Depression, unspecified; M19.90 Unspecified osteoarthritis, unspecified site; G43.909 Migraine, unspecified, not intractable, without status migrainosus; I12.9 Hypertensive chronic kidney disease with stage 1 through stage 4 chronic kidney disease, or unspecified chronic kidney disease; E11.22 Type 2 diabetes mellitus with diabetic chronic kidney disease; E03.9 Hypothyroidism, unspecified; S99.922A Unspecified injury of left foot, initial encounter; E78.00 Pure hypercholesterolemia, unspecified; E83.42 Hypomagnesemia; T45.1X5A Adverse effect of antineoplastic and immunosuppressive drugs, initial encounter; R79.89 Other specified abnormal findings of blood chemistry; Z88.0 Allergy status to penicillin; Z79.4 Long term (current) use of insulin; Z79.52 Long term (current) use of systemic steroids; Z87.01 Personal history of pneumonia (recurrent); Z79.01 Long term (current) use of anticoagulants; Z79.82 Long term (current) use of aspirin; Z79.899 Other long term (current) drug therapy; Z79.890 Hormone replacement therapy; Z90.710 Acquired absence of both cervix and uterus; Z87.891 Personal history of nicotine dependence; Z85.05 Personal history of malignant neoplasm of liver; Z98.84 Bariatric surgery status; W01.0XXA Fall on same level from slipping, tripping and stumbling without subsequent striking against object, initial encounter; Z68.24 Body mass index [BMI] 24.0-24.9, adult
CPT/HCPCS: 36415; 71045; 73551; 73590; 74176; 80053; 82272; 82803; 83735; 83930; 85025; 96361; 96374; 99285; J1170; J3490; J7030; 36430; 73620-26-LT; 73620-LT; 80048; 81001; 82947; 84484; 85014; 85018; 85049; 86140; 86850; 86900; 86901; 86922; 87086; 87088; 87186; 93005; 93010; 97110-GP; 97161-GP; 99223; 99233; 99238; A9270-GY; J1815; J1815-GY; J3475; J7050; J7512; P9016

== ENCOUNTER 2023-11-17 07:36 | Emergency (ER) | payer MEDICARE, BC ==
[2023-11-17] MEDS: Sodium Chloride 0.9% 1,000 ML IV ONE ×2 (08:20→10:01)
[2023-11-17] MEDS: Sodium Chloride 0.9% 10 ML Syringe FLUSH PRN (08:20)
[2023-11-17 08:46] LABS: HEMATOCRIT 30.8 % (37.0-47.0); MEAN CORPUSCULAR HEMOGLOBIN 29.4 pg (28.0-32.0); MEAN CORPUSCULAR HGB CONC 31.5 g/dl (32.0-36.0); MEAN CORPUSCULAR VOLUME 93.3 fl (83.0-99.0); PLATELET COUNT,PLT 32 K/mm3 (150-400)
[2023-11-17 08:54] LABS: HEMOGLOBIN 9.7 gm/dl (12.0-16.0); WHITE BLOOD CELL COUNT,WBC 2.26 K/mm3 (3.9-11.3)
[2023-11-17 09:12] LABS: INR 1.18; PROTHROMBIN TIME 12.4 SECONDS (9.7-12.0)
[2023-11-17 09:13] LABS: A/G RATIO 0.8 (1-2); ALBUMIN 2.9 g/dl (3.4-5.0); ANION GAP 15.1 (5-15); BILIRUBIN TOTAL 0.6 mg/dL (0.2-1.0); BUN/CREATININE RATIO 19.6 (14-18); C-REACTIVE PROTEIN 8.69 mg/dL (<0.30); CALCIUM 8.4 mg/dL (8.5-10.1); CREATININE 2.8 mg/dL (0.55-1.02); EST CRCL DRUG DOSING (CG) 16.6 mL/min; POTASSIUM,K 4.1 mEq/L (3.5-5.1); PROTEIN TOTAL,TP 6.4 g/dl (6.4-8.2); TSH 1.243 uIU/mL (0.358-3.74)
[2023-11-17 09:16] LABS: BAND PERCENT MAN 4 % (0-10); BASOPHILS PERCENT MAN 0 (0.1-1.2); EOSINOPHILS PERCENT MAN 0 % (0.7-5.8); LYMPHOCYTES % ATYPICAL MANUAL 0 %; LYMPHOCYTES PERCENT MAN 29 % (20-40); METAMYELOCYTE PERCENT MAN 2; MONOCYTES PERCENT MAN 26 % (2-10); MYELOCYTE PERCENT MAN 1
[2023-11-17 09:18] LABS: ANISOCYTOSIS 1+ SLIGHT; OVALOCYTES 1+ SLIGHT; PLATELET COUNT ESTIMATE DECREASED; TOXIC GRANULATION 2+ MODERATE
[2023-11-17 09:19] LABS: LACTIC ACID 0.9 mmol/L (0.4-2.0)
[2023-11-17 09:50] LABS: CORONAVIRUS COVID-19 NAA NEGATIVE (NEGATIVE); INFLUENZA A NAA NEGATIVE (NEGATIVE); RESPIRATORY SYNCYTIAL VIR NAA NEGATIVE (NEGATIVE)
[2023-11-17] MEDS: LORazepam 2 MG/ML SDV IVPUSH ONE (10:00)
[2023-11-17 10:58] LABS: BASE EXCESS ARTERIAL -6.9 (-2-2.0); BICARBONATE,ARTERIAL 22.5 meq/L (22.0-26.0); O2 SATURATION ARTERIAL 99.1 % (96.0-97.0); PCO2 ARTERIAL 71.6 mmHg (35.0-45.0)
[2023-11-17 11:09] LABS: APPEARANCE,URINE CLOUDY (Clear); BILIRUBIN,URINE NEGATIVE (Negative); COLOR,URINE YELLOW (Yellow); GLUCOSE,URINE 1+ (Negative); KETONES,URINE NEGATIVE (Negative); LEUKOCYTE ESTERASE,URINE 1+ (Negative); NITRITE,URINE NEGATIVE (Negative); OCCULT BLOOD,URINE 2+ (Negative); PROTEIN,URINE 3+ (Negative); UROBILINOGEN,URINE 0.2 (0.2-1.0)
[2023-11-17 11:15] LABS: BACTERIA,URINE MODERATE /hpf (FEW); HYALINE CASTS,URINE 0-5 /lpf (0-5); MUCUS,URINE FEW /hpf (FEW); RBC,URINE 50-75 /hpf (0-5); WBC,URINE 20-30 /hpf (0-5)
[2023-11-17] MEDS: cefTRIAXone 2 GM in Sodium Chloride 0.9% 100 ML IV ONE (11:39)
[2023-11-17 13:25] LABS: BASE EXCESS ARTERIAL -7.3 (-2-2.0); BICARBONATE,ARTERIAL 19.4 meq/L (22.0-26.0); PCO2 ARTERIAL 47.8 mmHg (35.0-45.0)
[2023-11-17 15:31] VITALS: BP 115/90; PULSE 123
[2023-11-17] MEDS: Aspirin 81 MG Tab.Chew PO ONE (15:34)
== END 2023-11-17 17:25 ==
LOC: JD.ED 07:36
DX: A41.9 Sepsis, unspecified organism (principal); R65.20 Severe sepsis without septic shock; N39.0 Urinary tract infection, site not specified; J96.02 Acute respiratory failure with hypercapnia; N17.9 Acute kidney failure, unspecified; I21.4 Non-ST elevation (NSTEMI) myocardial infarction; D61.818 Other pancytopenia; I10 Essential (primary) hypertension; E78.00 Pure hypercholesterolemia, unspecified; K21.9 Gastro-esophageal reflux disease without esophagitis; E11.9 Type 2 diabetes mellitus without complications; E03.9 Hypothyroidism, unspecified; Z90.710 Acquired absence of both cervix and uterus; Z87.891 Personal history of nicotine dependence; Z79.899 Other long term (current) drug therapy; Z79.4 Long term (current) use of insulin; Z79.890 Hormone replacement therapy; Z88.0 Allergy status to penicillin
CPT/HCPCS: 0241U; 36415; 36600; 70450; 71045; 80053; 81001; 82140; 82803; 82947; 83605; 83880; 83930; 84443; 84484; 85007; 85027; 85379; 85610; 86140; 87040; 87086; 87088; 87186; 93005; 96361; 96365; 96375; 99285; A9270; C1758; J0696; J2060; J3490; J7030; 93010

== ENCOUNTER 2024-02-19 12:43 | Inpatient (IN) | payer MEDICARE, BC ==
[2024-02-19] MEDS ORDERED: Sodium Chloride 0.9% 10 ML Syringe FLUSH PRN ×2 (13:17)
[2024-02-19] MEDS: Diltiazem 25 MG/5 ML SDV IVPUSH ONE (13:40)
[2024-02-19] MEDS: Diltiazem 125 MG in Sodium Chloride 0.9% 100 ML IV SCH (13:40)
[2024-02-19] MEDS: Sodium Chloride 0.9% 0 ML ONE (13:41)
[2024-02-19 15:05] LABS: BASOPHILS PERCENT AUTO 0.2 % (0.0-1.0); HEMATOCRIT 29.4 % (37.0-47.0); HEMOGLOBIN 9.5 gm/dl (12.0-16.0); IMMATURE GRAN ABSOLUTE AUTO 0.03 K/mm3 (0.00-0.05); IMMATURE GRAN PERCENT AUTO 0.6 % (0.0-0.4); LYMPHOCYTES ABSOLUTE AUTO 0.3 K/mm3 (1.0-4.8); LYMPHOCYTES PERCENT AUTO 7.2 % (24.0-44.0); MEAN CORPUSCULAR HEMOGLOBIN 29.3 pg (28.0-32.0); MEAN CORPUSCULAR HGB CONC 32.3 g/dl (32.0-36.0); MEAN CORPUSCULAR VOLUME 90.7 fl (83.0-99.0); MEAN PLATELET VOLUME 10.9 fl (9.4-12.3); MONOCYTES ABSOLUTE AUTO 2.1 K/mm3 (0.0-0.8); MONOCYTES PERCENT AUTO 44.8 % (0.0-8.0); NEUTROPHILS ABSOLUTE AUTO 2.2 K/mm3 (1.8-7.7); NEUTROPHILS PERCENT AUTO 47.2 % (41.0-71.0); PLATELET COUNT,PLT 234 K/mm3 (150-400); RED BLOOD CELL COUNT 3.24 M/mm3 (4.10-5.30); WHITE BLOOD CELL COUNT,WBC 4.69 K/mm3 (3.9-11.3)
[2024-02-19 15:23] LABS: INR 1.32; PROTHROMBIN TIME 13.7 SECONDS (9.7-12.0)
[2024-02-19 15:30] LABS: SLIDE REVIEW ABNORMAL SMEAR
[2024-02-19 15:34] LABS: A/G RATIO 0.8 (1-2); ANION GAP 18.4 (5-15); BILIRUBIN TOTAL 0.7 mg/dL (0.2-1.0); CALCIUM 9.1 mg/dL (8.5-10.1); EST CRCL DRUG DOSING (CG) 19.38 mL/min; MAGNESIUM 1.2 mg/dL (1.8-2.4)
[2024-02-19 15:54] LABS: CREATININE 2.5 mg/dL (0.55-1.02); POTASSIUM,K 2.4 mEq/L (3.5-5.1)
[2024-02-19] MEDS ORDERED: Magnesium Sulfate (4.06 MEQ/ML) 5 GM/10 ML SDV IV STA (17:06)
[2024-02-19 17:22] LABS: APPEARANCE,URINE CLOUDY (Clear); BILIRUBIN,URINE 1+ (Negative); GLUCOSE,URINE NEGATIVE (Negative); KETONES,URINE NEGATIVE (Negative); LEUKOCYTE ESTERASE,URINE 3+ (Negative); NITRITE,URINE NEGATIVE (Negative); OCCULT BLOOD,URINE 2+ (Negative); PH,URINE 6.5 (5.0-8.0); PROTEIN,URINE 2+ (Negative); UROBILINOGEN,URINE 0.2 (0.2-1.0)
[2024-02-19] MEDS: Potassium Chloride 10 MEQ in Premix Bag 1 BAG IV ONE ×2 (17:25→18:55)
[2024-02-19 17:37] LABS: COLOR,URINE YELLOW (Yellow)
[2024-02-19 17:38] LABS: BACTERIA,URINE MANY /hpf (FEW); MUCUS,URINE NOT SEEN /hpf (FEW); RBC,URINE 30-40 /hpf (0-5); SQUAMOUS EPITHELIAL CELLS,UR 0-5 /hpf (0-5); WBC,URINE >100 /hpf (0-5)
[2024-02-19] MEDS ORDERED: 50% Dextrose in Water 50 ML Syringe IVPUSH PRN (18:16)
[2024-02-19] MEDS: Albuterol/Ipratropium 3.0-0.5 MG/3 ML Neb Soln INH SCH (18:44)
[2024-02-19] MEDS: Potassium Chloride 20 MEQ Tab.ER PO SCH (20:16)
[2024-02-19] MEDS: Potassium Chloride 10 MEQ in Premix Bag 1 BAG IV SCH (20:17)
[2024-02-19] MEDS: cefTRIAXone 1 GM Vial IV SCH (20:18)
[2024-02-19] MEDS: Apixaban 5 MG Tab PO SCH (20:18)
[2024-02-19] MEDS: Diltiazem IR 30 MG Tab PO SCH (20:22)
[2024-02-19] MEDS: Sodium Bicarbonate 650 MG Tab PO SCH (20:23)
[2024-02-19] MEDS: Metoprolol Tartrate 100 MG Tab PO SCH (20:26)
[2024-02-19] MEDS: Insulin Lispro 100 Unit/ML 3 ML KwikPen SUBCUT SCH (20:29)
[2024-02-19] MEDS: Acetaminophen 325 MG Tab PO PRN (20:57)
[2024-02-19] MEDS ORDERED: Metoprolol Tartrate 50 MG Tab PO SCH (21:00)
[2024-02-19] MEDS ORDERED: Apixaban 5 MG Tab PO SCH (21:00)
[2024-02-19] MEDS: Sodium Chloride 0.9% 1,000 ML IV SCH (21:03)
[2024-02-19] MEDS: Tacrolimus 1 MG Cap PO SCH (23:14)
[2024-02-19] MEDS: Sodium Chloride 0.9% 500 ML ONE (23:22)
[2024-02-19] MEDS: Sodium Chloride 0.9% 500 ML IV ONE ×2 (23:24)
[2024-02-19] MEDS: cefTRIAXone 1 GM Vial IM SCH (23:27)
[2024-02-20 04:45] LABS: BASOPHILS PERCENT AUTO 0.9 % (0.0-1.0); HEMOGLOBIN 8.6 gm/dl (12.0-16.0); IMMATURE GRAN ABSOLUTE AUTO 0.03 K/mm3 (0.00-0.05); IMMATURE GRAN PERCENT AUTO 0.9 % (0.0-0.4); LYMPHOCYTES ABSOLUTE AUTO 0.5 K/mm3 (1.0-4.8); LYMPHOCYTES PERCENT AUTO 13.5 % (24.0-44.0); MEAN CORPUSCULAR HEMOGLOBIN 29.3 pg (28.0-32.0); MEAN CORPUSCULAR HGB CONC 31.9 g/dl (32.0-36.0); MEAN CORPUSCULAR VOLUME 91.8 fl (83.0-99.0); MONOCYTES ABSOLUTE AUTO 1.3 K/mm3 (0.0-0.8); MONOCYTES PERCENT AUTO 38.1 % (0.0-8.0); NEUTROPHILS ABSOLUTE AUTO 1.6 K/mm3 (1.8-7.7); NEUTROPHILS PERCENT AUTO 46.6 % (41.0-71.0); PLATELET COUNT,PLT 206 K/mm3 (150-400); RED BLOOD CELL COUNT 2.94 M/mm3 (4.10-5.30); WHITE BLOOD CELL COUNT,WBC 3.41 K/mm3 (3.9-11.3)
[2024-02-20 05:16] LABS: A/G RATIO 0.7 (1-2); ALBUMIN 2.4 g/dl (3.4-5.0); ALKALINE PHOSPHATASE 91 U/L (46-116); ASPARTATE AMNIOTRANSFERASE,AST 4 U/L (15-37); BILIRUBIN TOTAL 0.5 mg/dL (0.2-1.0); BUN/CREATININE RATIO 28.8 (14-18); CALCIUM 8.7 mg/dL (8.5-10.1); CARBON DIOXIDE,CO2 23 mEq/L (21-32); CREATININE 2.4 mg/dL (0.55-1.02); EST CRCL DRUG DOSING (CG) 20.19 mL/min; ESTIMATED GFR 21 mL/min (>60); GLUCOSE RANDOM 107 mg/dL (70-99); MAGNESIUM 2.1 mg/dL (1.8-2.4); PROTEIN TOTAL,TP 6.1 g/dl (6.4-8.2)
[2024-02-20 05:35] LABS: ANION GAP 18.5 (5-15); CHLORIDE,CL 101 mEq/L (98-107); POTASSIUM,K 4.5 mEq/L (3.5-5.1)
[2024-02-20 05:57] LABS: ALANINE AMINOTRANSFERASE,ALT < 6 U/L (14-59)
[2024-02-20 05:58] LABS: SODIUM,NA 138 mEq/L (136-145)
[2024-02-20 06:02] LABS: BLOOD UREA NITROGEN,BUN 69 mg/dL (7-18)
[2024-02-20 06:08] LABS: SLIDE REVIEW ABNORMAL SMEAR
[2024-02-20 06:16] LABS: BUN/CREATININE RATIO 28.8 (14-18)
[2024-02-20] MEDS: Pantoprazole 40 MG Tab.CR PO SCH ×2 (07:21→09:12)
[2024-02-20] MEDS ORDERED: Sennosides 8.6 MG Tab PO SCH ×2 (09:00)
[2024-02-20] MEDS ORDERED: Apixaban 2.5 MG Tab PO SCH (09:00)
[2024-02-20] MEDS ORDERED: Pravastatin 20 MG Tab PO SCH (09:00)
[2024-02-20] MEDS: Tacrolimus 1 MG Cap PO SCH (09:11)
[2024-02-20] MEDS: Calcitriol 0.25 MCG Cap PO SCH (09:11)
[2024-02-20] MEDS: Sodium Bicarbonate 650 MG Tab PO SCH (09:12)
[2024-02-20] MEDS: guaiFENesin 600 MG Tab.ER PO SCH (09:12)
[2024-02-20] MEDS: Clopidogrel 75 MG Tab PO SCH (09:12)
[2024-02-20] MEDS: Apixaban 2.5 MG Tab PO SCH (09:12)
[2024-02-20] MEDS: Pravastatin 20 MG Tab PO SCH (09:12)
[2024-02-20] MEDS: Metoprolol Tartrate 50 MG Tab PO SCH (09:12)
[2024-02-20] MEDS: Albuterol/Ipratropium 3.0-0.5 MG/3 ML Neb Soln INH SCH (17:11)
[2024-02-20] MEDS: cefTRIAXone 1 GM in Sodium Chloride 0.9% 50 ML IV SCH (18:28)
[2024-02-20] MEDS: Loperamide 2 MG Cap PO PRN (19:53)
[2024-02-21 04:44] LABS: BASOPHILS ABSOLUTE AUTO 0.1 K/mm3 (0.0-0.2); BASOPHILS PERCENT AUTO 1.4 % (0.0-1.0); EOSINOPHILS PERCENT AUTO 0.3 % (0.0-6.0); HEMOGLOBIN 8.5 gm/dl (12.0-16.0); IMMATURE GRAN ABSOLUTE AUTO 0.04 K/mm3 (0.00-0.05); IMMATURE GRAN PERCENT AUTO 1.1 % (0.0-0.4); LYMPHOCYTES ABSOLUTE AUTO 0.6 K/mm3 (1.0-4.8); LYMPHOCYTES PERCENT AUTO 16.7 % (24.0-44.0); MEAN CORPUSCULAR HEMOGLOBIN 29.6 pg (28.0-32.0); MEAN CORPUSCULAR HGB CONC 31.5 g/dl (32.0-36.0); MEAN CORPUSCULAR VOLUME 94.1 fl (83.0-99.0); MEAN PLATELET VOLUME 10.9 fl (9.4-12.3); MONOCYTES ABSOLUTE AUTO 1.2 K/mm3 (0.0-0.8); MONOCYTES PERCENT AUTO 33.6 % (0.0-8.0); NEUTROPHILS ABSOLUTE AUTO 1.7 K/mm3 (1.8-7.7); NEUTROPHILS PERCENT AUTO 46.9 % (41.0-71.0); PLATELET COUNT,PLT 210 K/mm3 (150-400); RED BLOOD CELL COUNT 2.87 M/mm3 (4.10-5.30)
[2024-02-21 05:08] LABS: A/G RATIO 0.6 (1-2); ALBUMIN 2.3 g/dl (3.4-5.0); ANION GAP 17.6 (5-15); BILIRUBIN TOTAL 0.4 mg/dL (0.2-1.0); CALCIUM 8.8 mg/dL (8.5-10.1); CREATININE 2.3 mg/dL (0.55-1.02); EST CRCL DRUG DOSING (CG) 21.06 mL/min; POTASSIUM,K 3.6 mEq/L (3.5-5.1); PROTEIN TOTAL,TP 6.1 g/dl (6.4-8.2)
[2024-02-21] MEDS: Levothyroxine 75 MCG Tab PO SCH (06:39)
[2024-02-21] MEDS: Insulin Glargine,Human Rec. Analog 100 Units/ML 3 ML Pen SUBCUT SCH (08:09)
[2024-02-21] MEDS: Metoprolol Tartrate 100 MG Tab PO SCH (08:17)
[2024-02-21] MEDS: Ondansetron 4 MG Tab.DIS PO PRN (08:17)
[2024-02-21] MEDS ORDERED: Ferrous Sulfate 324 MG Tab.EC PO SCH ×2 (09:00)
[2024-02-21] MEDS: traMADol 50 MG Tab PO ONE (20:15)
[2024-02-22] MEDS: HYDROmorphone 2 MG Tab PO PRN (09:36)
[2024-02-22 10:01] LABS: BASOPHILS ABSOLUTE AUTO 0.1 K/mm3 (0.0-0.2); BASOPHILS PERCENT AUTO 1.1 % (0.0-1.0); EOSINOPHILS PERCENT AUTO 0.2 % (0.0-6.0); HEMATOCRIT 28.2 % (37.0-47.0); HEMOGLOBIN 8.6 gm/dl (12.0-16.0); IMMATURE GRAN ABSOLUTE AUTO 0.04 K/mm3 (0.00-0.05); IMMATURE GRAN PERCENT AUTO 0.9 % (0.0-0.4); LYMPHOCYTES ABSOLUTE AUTO 0.5 K/mm3 (1.0-4.8); LYMPHOCYTES PERCENT AUTO 11.2 % (24.0-44.0); MEAN CORPUSCULAR HEMOGLOBIN 28.5 pg (28.0-32.0); MEAN CORPUSCULAR HGB CONC 30.5 g/dl (32.0-36.0); MEAN CORPUSCULAR VOLUME 93.4 fl (83.0-99.0); MEAN PLATELET VOLUME 11.1 fl (9.4-12.3); MONOCYTES ABSOLUTE AUTO 1.7 K/mm3 (0.0-0.8); MONOCYTES PERCENT AUTO 37.7 % (0.0-8.0); NEUTROPHILS ABSOLUTE AUTO 2.2 K/mm3 (1.8-7.7); NEUTROPHILS PERCENT AUTO 48.9 % (41.0-71.0); PLATELET COUNT,PLT 206 K/mm3 (150-400); RED BLOOD CELL COUNT 3.02 M/mm3 (4.10-5.30); WHITE BLOOD CELL COUNT,WBC 4.56 K/mm3 (3.9-11.3)
[2024-02-22 10:45] LABS: SLIDE REVIEW ABNORMAL SMEAR
[2024-02-22 11:38] LABS: A/G RATIO 0.5 (1-2); ALBUMIN 2.1 g/dl (3.4-5.0); ANION GAP 19.1 (5-15); BILIRUBIN TOTAL 0.3 mg/dL (0.2-1.0); BUN/CREATININE RATIO 26.8 (14-18); CALCIUM 8.8 mg/dL (8.5-10.1); CREATININE 2.2 mg/dL (0.55-1.02); EST CRCL DRUG DOSING (CG) 22.02 mL/min; POTASSIUM,K 4.1 mEq/L (3.5-5.1)
[2024-02-22 13:50] LABS: C-REACTIVE PROTEIN 15.74 mg/dL (<0.30)
[2024-02-22] MEDS: predniSONE 20 MG Tab PO SCH (16:38)
[2024-02-22] MEDS: Insulin Glargine,Human Rec. Analog 100 Units/ML 3 ML Pen SUBCUT SCH (21:50)
[2024-02-22] MEDS: Insulin Lispro 100 Unit/ML 3 ML KwikPen SUBCUT ONE (21:55)
[2024-02-23] MEDS: Insulin Glargine,Human Rec. Analog 100 Units/ML 3 ML Pen SUBCUT SCH ×2 (08:22→21:15)
[2024-02-23] MEDS: Morphine 15 MG Tab.ER PO SCH (11:28)
[2024-02-23] MEDS: Insulin Lispro 100 Unit/ML 3 ML KwikPen SUBCUT SCH (17:22)
[2024-02-23] MEDS: Insulin Lispro 100 Unit/ML 3 ML KwikPen SUBCUT ONE (21:15)
[2024-02-24] MEDS: predniSONE 10 MG Tab PO SCH (08:19)
[2024-02-24 08:55] LABS: BASOPHILS PERCENT AUTO 0.4 % (0.0-1.0); EOSINOPHILS PERCENT AUTO 0.2 % (0.0-6.0); HEMATOCRIT 30.4 % (37.0-47.0); HEMOGLOBIN 9.2 gm/dl (12.0-16.0); IMMATURE GRAN ABSOLUTE AUTO 0.06 K/mm3 (0.00-0.05); IMMATURE GRAN PERCENT AUTO 1.1 % (0.0-0.4); LYMPHOCYTES ABSOLUTE AUTO 0.9 K/mm3 (1.0-4.8); MEAN CORPUSCULAR HEMOGLOBIN 29.1 pg (28.0-32.0); MEAN CORPUSCULAR HGB CONC 30.3 g/dl (32.0-36.0); MEAN CORPUSCULAR VOLUME 96.2 fl (83.0-99.0); MEAN PLATELET VOLUME 11.1 fl (9.4-12.3); MONOCYTES ABSOLUTE AUTO 1.5 K/mm3 (0.0-0.8); MONOCYTES PERCENT AUTO 28.9 % (0.0-8.0); NEUTROPHILS ABSOLUTE AUTO 2.8 K/mm3 (1.8-7.7); NEUTROPHILS PERCENT AUTO 52.4 % (41.0-71.0); PLATELET COUNT,PLT 308 K/mm3 (150-400); RED BLOOD CELL COUNT 3.16 M/mm3 (4.10-5.30)
[2024-02-24 09:16] LABS: A/G RATIO 0.5 (1-2); ALBUMIN 2.1 g/dl (3.4-5.0); BILIRUBIN TOTAL 0.2 mg/dL (0.2-1.0); BUN/CREATININE RATIO 33.5 (14-18); CALCIUM 8.7 mg/dL (8.5-10.1); CREATININE 2.3 mg/dL (0.55-1.02); EST CRCL DRUG DOSING (CG) 21.06 mL/min; PROTEIN TOTAL,TP 6.3 g/dl (6.4-8.2)
[2024-02-24 09:23] LABS: ANION GAP 19.2 (5-15)
[2024-02-24 09:34] LABS: POTASSIUM,K 5.2 mEq/L (3.5-5.1)
[2024-02-24] MEDS: Furosemide 40 MG Tab PO SCH (09:34)
[2024-02-25 06:02] LABS: A/G RATIO 0.6 (1-2); ALBUMIN 2.1 g/dl (3.4-5.0); ANION GAP 18.1 (5-15); BILIRUBIN TOTAL 0.2 mg/dL (0.2-1.0); CALCIUM 8.5 mg/dL (8.5-10.1); EST CRCL DRUG DOSING (CG) 24.23 mL/min; POTASSIUM,K 5.1 mEq/L (3.5-5.1); PROTEIN TOTAL,TP 5.8 g/dl (6.4-8.2)
[2024-02-25] MEDS: Insulin Glargine,Human Rec. Analog 100 Units/ML 3 ML Pen SUBCUT SCH (20:49)
[2024-02-26] MEDS: Apixaban 2.5 MG Tab PO SCH (08:04)
[2024-02-26] MEDS ORDERED: Apixaban 5 MG Tab PO SCH (09:00)
[2024-02-26] MEDS: oxyCODONE 5 MG Tab PO PRN (14:29)
[2024-02-27] MEDS: Insulin Glargine,Human Rec. Analog 100 Units/ML 3 ML Pen SUBCUT SCH (09:01)
[2024-02-28] MEDS: predniSONE 20 MG Tab PO SCH (08:25)
[2024-02-29] MEDS: predniSONE 10 MG Tab PO SCH (06:37)
[2024-02-29] MEDS: traZODone 50 MG Tab PO SCH (20:21)
[2024-03-01] MEDS: Calcitriol 0.25 MCG Cap PO SCH (08:49)
[2024-03-01] MEDS: traZODone 50 MG Tab PO PRN (21:15)
[2024-03-04 08:35] VITALS: BP 114/73; PULSE 75
== END 2024-03-04 16:55 | disposition home health service (06) | DRG 683 ==
LOC: JD.ED 12:43 → JD.ICU 17:38 → JD.MS 03-01 14:35 → JD.ICU 03-01 15:20
PROVIDERS: ADMIT Family Medicine; ATTEND Student in an Organized Health Care Education/Training Program
DX: N17.9 Acute kidney failure, unspecified (principal); D84.9 Immunodeficiency, unspecified; N39.0 Urinary tract infection, site not specified; N18.4 Chronic kidney disease, stage 4 (severe); N18.9 Chronic kidney disease, unspecified; E87.6 Hypokalemia; I48.91 Unspecified atrial fibrillation; I95.9 Hypotension, unspecified; D46.9 Myelodysplastic syndrome, unspecified; I25.10 Atherosclerotic heart disease of native coronary artery without angina pectoris; E78.00 Pure hypercholesterolemia, unspecified; E11.22 Type 2 diabetes mellitus with diabetic chronic kidney disease; I12.9 Hypertensive chronic kidney disease with stage 1 through stage 4 chronic kidney disease, or unspecified chronic kidney disease; E03.9 Hypothyroidism, unspecified; M19.90 Unspecified osteoarthritis, unspecified site; B96.1 Klebsiella pneumoniae [K. pneumoniae] as the cause of diseases classified elsewhere; G43.909 Migraine, unspecified, not intractable, without status migrainosus; K21.9 Gastro-esophageal reflux disease without esophagitis; F32.A Depression, unspecified; E86.0 Dehydration; E83.42 Hypomagnesemia; E11.65 Type 2 diabetes mellitus with hyperglycemia; M10.9 Gout, unspecified; E87.5 Hyperkalemia; Z88.0 Allergy status to penicillin; Z79.1 Long term (current) use of non-steroidal anti-inflammatories (NSAID); Z79.4 Long term (current) use of insulin; Z95.1 Presence of aortocoronary bypass graft; Z90.710 Acquired absence of both cervix and uterus; Z98.890 Other specified postprocedural states; Z87.891 Personal history of nicotine dependence; Z91.199 Patient's noncompliance with other medical treatment and regimen due to unspecified reason; Z79.01 Long term (current) use of anticoagulants; Z79.2 Long term (current) use of antibiotics; Z79.899 Other long term (current) drug therapy; I25.2 Old myocardial infarction; Z87.01 Personal history of pneumonia (recurrent)
CPT/HCPCS: 36415; 71045; 80053; 81001; 83735; 84484; 85025; 85610; 87040 ×2; 87086; 87088; 87186; 87428; 96365; 96366; 96375; 99285; J3475; J3480; J3490 ×3; 73130-26-RT; 73130-RT; 82947; 84443; 84550; 85652; 86140; 93005; 93010; 94640; 94761; 97110-GP; 97161-GP; 97530-GP; 99291; A9270-GY; J0696; J1815; J1815-GY; J7030; J7507; J7512; J7620-GY

== ENCOUNTER 2024-03-06 11:35 | Observation (INO) | payer MEDICARE, BC ==
[2024-03-06] MEDS: Sodium Chloride 0.9% 10 ML Syringe FLUSH PRN (12:55)
[2024-03-06] MEDS: Sodium Chloride 0.9% 1,000 ML IV SCH (12:57)
[2024-03-06 13:08] LABS: BASOPHILS PERCENT AUTO 1.2 % (0.0-1.0); EOSINOPHILS PERCENT AUTO 0.3 % (0.0-6.0); HEMATOCRIT 33.3 % (37.0-47.0); HEMOGLOBIN 10.5 gm/dl (12.0-16.0); IMMATURE GRAN ABSOLUTE AUTO 0.02 K/mm3 (0.00-0.05); IMMATURE GRAN PERCENT AUTO 0.6 % (0.0-0.4); LYMPHOCYTES ABSOLUTE AUTO 0.9 K/mm3 (1.0-4.8); LYMPHOCYTES PERCENT AUTO 28.3 % (24.0-44.0); MEAN CORPUSCULAR HEMOGLOBIN 29.4 pg (28.0-32.0); MEAN CORPUSCULAR HGB CONC 31.5 g/dl (32.0-36.0); MEAN CORPUSCULAR VOLUME 93.3 fl (83.0-99.0); MEAN PLATELET VOLUME 12.8 fl (9.4-12.3); MONOCYTES ABSOLUTE AUTO 0.5 K/mm3 (0.0-0.8); MONOCYTES PERCENT AUTO 15.1 % (0.0-8.0); NEUTROPHILS ABSOLUTE AUTO 1.8 K/mm3 (1.8-7.7); NEUTROPHILS PERCENT AUTO 54.5 % (41.0-71.0); PLATELET COUNT,PLT 154 K/mm3 (150-400); RED BLOOD CELL COUNT 3.57 M/mm3 (4.10-5.30); WHITE BLOOD CELL COUNT,WBC 3.25 K/mm3 (3.9-11.3)
[2024-03-06 13:37] LABS: INR 1.08; PROTHROMBIN TIME 11.4 SECONDS (9.7-12.0)
[2024-03-06 13:38] LABS: PTT,PARTIAL THROMBOPLSTIN TIME 25.1 SECONDS (21.7-31.4)
[2024-03-06 14:28] LABS: A/G RATIO 1.1 (1-2); ALBUMIN 3.2 g/dl (3.4-5.0); ANION GAP 12.9 (5-15); BILIRUBIN TOTAL 0.6 mg/dL (0.2-1.0); BUN/CREATININE RATIO 45.7 (14-18); C-REACTIVE PROTEIN 0.6 mg/dL (<0.30); CALCIUM 8.8 mg/dL (8.5-10.1); CREATININE 1.4 mg/dL (0.55-1.02); EST CRCL DRUG DOSING (CG) 34.61 mL/min; MAGNESIUM 2.3 mg/dL (1.8-2.4); POTASSIUM,K 4.9 mEq/L (3.5-5.1); PROTEIN TOTAL,TP 6.1 g/dl (6.4-8.2)
[2024-03-06 15:26] LABS: APPEARANCE,URINE CLEAR (Clear); BILIRUBIN,URINE NEGATIVE (Negative); COLOR,URINE YELLOW (Yellow); GLUCOSE,URINE TRACE (Negative); KETONES,URINE NEGATIVE (Negative); LEUKOCYTE ESTERASE,URINE TRACE (Negative); NITRITE,URINE NEGATIVE (Negative); OCCULT BLOOD,URINE TRACE-LYSED (Negative); PROTEIN,URINE NEGATIVE (Negative); UROBILINOGEN,URINE 0.2 (0.2-1.0)
[2024-03-06 15:47] LABS: BARBITURATE SCREEN,URINE NEGATIVE (CUTOFF=200); BENZODIAZEPINES SCREEN,URINE PRESUMPTIVE POSITIVE (CUTOFF=150); BUPRENORPHINE SCREEN,URINE NEGATIVE (CUTOFF=10); METHADONE SCREEN, URINE NEGATIVE (CUTOFF=200); METHAMPHETAMINES SCREEN, URINE NEGATIVE (CUTOFF=500); OXYCODONE SCREEN,URINE NEGATIVE (CUT0FF=100); THC SCREEN,URINE 20 NG/ML NEGATIVE (CUTOFF=50)
[2024-03-06 15:52] LABS: AMPHETAMINES SCREEN, URINE NEGATIVE (CUTOFF=500)
[2024-03-06 15:59] LABS: BACTERIA,URINE NOT SEEN /hpf (FEW); EPITHELIAL CELLS,URINE 0-5 /hpf (0-5); MUCUS,URINE NOT SEEN /hpf (FEW); RBC,URINE 0-5 /hpf (0-5); WBC,URINE 0-5 /hpf (0-5)
[2024-03-06] MEDS ORDERED: Ondansetron 4 MG/2 ML SDV IV PRN (18:54)
[2024-03-06] MEDS ORDERED: Sennosides/Docusate Sodium 50-8.6 MG Tab PO PRN (18:54)
[2024-03-06] MEDS ORDERED: Morphine 2 MG/ML SYRINGE IVPUSH PRN (18:54)
[2024-03-06] MEDS ORDERED: Naloxone 0.4 MG/ML SDV IVPUSH PRN (18:54)
[2024-03-06] MEDS ORDERED: Albuterol 6.7 GM Inhaler INH PRN (18:58)
[2024-03-06] MEDS: oxyCODONE 5 MG Tab PO PRN (21:21)
[2024-03-06] MEDS: Apixaban 2.5 MG Tab PO SCH (21:21)
[2024-03-06] MEDS: Melatonin 3 MG Tab PO PRN (21:21)
[2024-03-06] MEDS: Metoprolol Tartrate 100 MG Tab PO SCH (21:21)
[2024-03-07 05:11] LABS: BASOPHILS ABSOLUTE AUTO 0.1 K/mm3 (0.0-0.2); EOSINOPHILS PERCENT AUTO 0.3 % (0.0-6.0); HEMATOCRIT 27.8 % (37.0-47.0); IMMATURE GRAN ABSOLUTE AUTO 0.02 K/mm3 (0.00-0.05); IMMATURE GRAN PERCENT AUTO 0.7 % (0.0-0.4); LYMPHOCYTES PERCENT AUTO 32.2 % (24.0-44.0); MEAN CORPUSCULAR HEMOGLOBIN 29.4 pg (28.0-32.0); MEAN CORPUSCULAR HGB CONC 31.3 g/dl (32.0-36.0); MEAN CORPUSCULAR VOLUME 93.9 fl (83.0-99.0); MEAN PLATELET VOLUME 12.5 fl (9.4-12.3); MONOCYTES ABSOLUTE AUTO 0.7 K/mm3 (0.0-0.8); MONOCYTES PERCENT AUTO 22.1 % (0.0-8.0); NEUTROPHILS ABSOLUTE AUTO 1.3 K/mm3 (1.8-7.7); NEUTROPHILS PERCENT AUTO 42.7 % (41.0-71.0); PLATELET COUNT,PLT 119 K/mm3 (150-400); RED BLOOD CELL COUNT 2.96 M/mm3 (4.10-5.30); WHITE BLOOD CELL COUNT,WBC 3.07 K/mm3 (3.9-11.3)
[2024-03-07 05:21] LABS: ANION GAP 16.7 (5-15); BILIRUBIN TOTAL 0.5 mg/dL (0.2-1.0); BUN/CREATININE RATIO 38.7 (14-18); CALCIUM 8.6 mg/dL (8.5-10.1); CREATININE 1.5 mg/dL (0.55-1.02); EST CRCL DRUG DOSING (CG) 32.3 mL/min; MAGNESIUM 2.3 mg/dL (1.8-2.4); PHOSPHORUS 4.8 mg/dL (2.6-4.7); POTASSIUM,K 4.7 mEq/L (3.5-5.1); PROTEIN TOTAL,TP 6.1 g/dl (6.4-8.2)
[2024-03-07 05:44] LABS: HEMOGLOBIN 8.7 gm/dl (12.0-16.0)
[2024-03-07 06:24] LABS: SLIDE REVIEW ABNORMAL SMEAR
[2024-03-07] MEDS: Levothyroxine 75 MCG Tab PO SCH (06:31)
[2024-03-07] MEDS: Furosemide 40 MG Tab PO SCH (06:34)
[2024-03-07] MEDS: Empagliflozin 10 MG Tab PO SCH (08:43)
[2024-03-07] MEDS: Clopidogrel 75 MG Tab PO SCH (08:43)
[2024-03-07] MEDS: Acetaminophen 325 MG Tab PO PRN (13:13)
[2024-03-07] MEDS: Vitamins A and D Oint 113 GM Tube TOP PRN (15:49)
[2024-03-07] MEDS ORDERED: Albuterol/Ipratropium 3.0-0.5 MG/3 ML Neb Soln INH PRN (17:16)
[2024-03-07] MEDS ORDERED: 50% Dextrose in Water 50 ML Syringe IVPUSH PRN (17:19)
[2024-03-07] MEDS ORDERED: MYCOPHENOLATE MOFETIL 500 MG PO SCH (21:00)
[2024-03-07] MEDS: Sodium Bicarbonate 650 MG Tab PO SCH (21:48)
[2024-03-07] MEDS: TACROLIMUS 1 MG PO SCH (21:51)
[2024-03-07] MEDS: Tacrolimus 1 MG Cap PO SCH (22:44)
[2024-03-08] MEDS: Cholecalciferol (Vitamin D3) 25 MCG Tab PO SCH (08:06)
[2024-03-08] MEDS: predniSONE 5 MG Tab PO SCH (08:06)
[2024-03-08] MEDS: Allopurinol 100 MG Tab PO SCH (08:06)
[2024-03-08] MEDS: Insulin Lispro 100 Unit/ML 3 ML KwikPen SUBCUT SCH (08:13)
[2024-03-08] MEDS: Calcitriol 0.25 MCG Cap PO SCH (08:13)
[2024-03-08] MEDS ORDERED: Denosumab 60 MG/1 ML Syringe SUBCUT SCH (10:00)
[2024-03-08] MEDS: Estradiol 0.01% Vaginal Crm 42.5 GM Tube VAG SCH (12:50)
[2024-03-08 13:42] LABS: TACROLIMUS (FK506) 5.5 ng/mL
[2024-03-08 15:16] VITALS: BP 121/71; PULSE 86
== END 2024-03-08 15:23 | disposition home or self-care (01) ==
LOC: JD.ED 11:35 → JD.MS 18:40
PROVIDERS: ADMIT Student in an Organized Health Care Education/Training Program; ATTEND Student in an Organized Health Care Education/Training Program
DX: R53.81 Other malaise (principal); R53.1 Weakness; I48.91 Unspecified atrial fibrillation; D46.9 Myelodysplastic syndrome, unspecified; N95.2 Postmenopausal atrophic vaginitis; I25.10 Atherosclerotic heart disease of native coronary artery without angina pectoris; I12.9 Hypertensive chronic kidney disease with stage 1 through stage 4 chronic kidney disease, or unspecified chronic kidney disease; E11.22 Type 2 diabetes mellitus with diabetic chronic kidney disease; N18.9 Chronic kidney disease, unspecified; E78.00 Pure hypercholesterolemia, unspecified; K21.9 Gastro-esophageal reflux disease without esophagitis; E03.9 Hypothyroidism, unspecified; Z95.1 Presence of aortocoronary bypass graft; Z79.01 Long term (current) use of anticoagulants; Z79.84 Long term (current) use of oral hypoglycemic drugs; Z79.4 Long term (current) use of insulin; Z79.890 Hormone replacement therapy; Z79.899 Other long term (current) drug therapy
CPT/HCPCS: 36415; 71045; 73502; 80053; 80197; 80306; 80307; 81001; 82947; 83690; 83735; 83880; 84100; 84484; 85025; 85610; 85730; 86140; 87428; 93005; 94760; 97161; 97530; A9270; J1815; J7030; J7507; J7512; G0378

== ENCOUNTER 2024-03-25 07:59 | Inpatient (IN) | payer MEDICARE, BC ==
[2024-03-25] MEDS ORDERED: Sodium Chloride 0.9% 10 ML Syringe FLUSH PRN (08:34)
[2024-03-25] MEDS ORDERED: Metoprolol Tartrate 5 MG in Sodium Chloride 0.9% 50 ML IV ONE (08:42)
[2024-03-25] MEDS: Metoprolol Tartrate 5 MG/5 ML SDV IV ONE (08:52)
[2024-03-25] MEDS: Sodium Chloride 0.9% 1,000 ML IV ONE (08:52)
[2024-03-25 08:54] LABS: BASOPHILS PERCENT AUTO 0.3 % (0.0-1.0); HEMATOCRIT 28.6 % (37.0-47.0); HEMOGLOBIN 9.1 gm/dl (12.0-16.0); IMMATURE GRAN ABSOLUTE AUTO 0.07 K/mm3 (0.00-0.05); LYMPHOCYTES ABSOLUTE AUTO 0.9 K/mm3 (1.0-4.8); LYMPHOCYTES PERCENT AUTO 12.4 % (24.0-44.0); MEAN CORPUSCULAR HEMOGLOBIN 29.8 pg (28.0-32.0); MEAN CORPUSCULAR HGB CONC 31.8 g/dl (32.0-36.0); MEAN CORPUSCULAR VOLUME 93.8 fl (83.0-99.0); MEAN PLATELET VOLUME 11.7 fl (9.4-12.3); MONOCYTES ABSOLUTE AUTO 2.2 K/mm3 (0.0-0.8); MONOCYTES PERCENT AUTO 31.3 % (0.0-8.0); NEUTROPHILS ABSOLUTE AUTO 3.8 K/mm3 (1.8-7.7); PLATELET COUNT,PLT 236 K/mm3 (150-400); RED BLOOD CELL COUNT 3.05 M/mm3 (4.10-5.30); WHITE BLOOD CELL COUNT,WBC 6.93 K/mm3 (3.9-11.3)
[2024-03-25 09:08] LABS: LACTIC ACID 1.5 mmol/L (0.4-2.0)
[2024-03-25 09:10] LABS: A/G RATIO 0.7 (1-2); ALANINE AMINOTRANSFERASE,ALT 8 U/L (14-59); ALKALINE PHOSPHATASE 109 U/L (46-116); ANION GAP 20.7 (5-15); ASPARTATE AMNIOTRANSFERASE,AST 6 U/L (15-37); BILIRUBIN TOTAL 0.6 mg/dL (0.2-1.0); BLOOD UREA NITROGEN,BUN 48 mg/dL (7-18); BUN/CREATININE RATIO 22.9 (14-18); CALCIUM 9.5 mg/dL (8.5-10.1); CARBON DIOXIDE,CO2 21 mEq/L (21-32); CHLORIDE,CL 97 mEq/L (98-107); CREATININE 2.1 mg/dL (0.55-1.02); EST CRCL DRUG DOSING (CG) 22.75 mL/min; ESTIMATED GFR 25 mL/min (>60); GLUCOSE RANDOM 382 mg/dL (70-99); MAGNESIUM 1.9 mg/dL (1.8-2.4); PROTEIN TOTAL,TP 7.5 g/dl (6.4-8.2); SODIUM,NA 135 mEq/L (136-145)
[2024-03-25 09:14] LABS: C-REACTIVE PROTEIN > 25.00 mg/dL (<0.30)
[2024-03-25 09:15] LABS: POTASSIUM,K 3.7 mEq/L (3.5-5.1)
[2024-03-25] MEDS: LORazepam 2 MG/ML SDV IVPUSH ONE (10:03)
[2024-03-25] MEDS: Diltiazem 25 MG/5 ML SDV IVPUSH ONE (10:47)
[2024-03-25] MEDS: Diltiazem 125 MG in Sodium Chloride 0.9% 100 ML IV SCH (10:58)
[2024-03-25] MEDS: Sodium Chloride 0.9% 250 ML IV SCH (12:41)
[2024-03-25 13:53] LABS: TSH 2.497 uIU/mL (0.358-3.74)
[2024-03-25] MEDS ORDERED: 50% Dextrose in Water 50 ML Syringe IVPUSH PRN (14:06)
[2024-03-25 14:28] LABS: APPEARANCE,URINE CLOUDY (Clear); BILIRUBIN,URINE NEGATIVE (Negative); COLOR,URINE YELLOW (Yellow); GLUCOSE,URINE 3+ (Negative); KETONES,URINE TRACE (Negative); LEUKOCYTE ESTERASE,URINE 1+ (Negative); NITRITE,URINE POSITIVE (Negative); OCCULT BLOOD,URINE 2+ (Negative); PROTEIN,URINE 2+ (Negative); UROBILINOGEN,URINE 0.2 (0.2-1.0)
[2024-03-25 14:44] LABS: BACTERIA,URINE MANY /hpf (FEW); MUCUS,URINE FEW /hpf (FEW); SQUAMOUS EPITHELIAL CELLS,UR 0-5 /hpf (0-5); WBC,URINE TOO NUMEROUS TO CNT /hpf (0-5)
[2024-03-25] MEDS: Sodium Chloride 0.9% 1,000 ML IV SCH ×2 (15:31→19:48)
[2024-03-25] MEDS: cefTRIAXone 1 GM Vial IVPUSH SCH (15:47)
[2024-03-25 16:41] LABS: INR 1.16; PROTHROMBIN TIME 12.2 SECONDS (9.7-12.0)
[2024-03-25] MEDS: Insulin Lispro 100 Unit/ML 3 ML KwikPen SUBCUT SCH (17:22)
[2024-03-25] MEDS: Aspirin 81 MG Tab.Chew PO STA (20:25)
[2024-03-25] MEDS: Apixaban 5 MG Tab PO SCH (20:25)
[2024-03-25] MEDS: atorvaSTATin 40 MG Tab PO SCH (20:25)
[2024-03-25] MEDS: Sodium Bicarbonate 650 MG Tab PO SCH (20:25)
[2024-03-25] MEDS: Cholecalciferol (Vitamin D3) 25 MCG Tab PO SCH (20:25)
[2024-03-25] MEDS: Metoprolol Tartrate 100 MG Tab PO SCH (20:30)
[2024-03-25] MEDS ORDERED: Apixaban 5 MG Tab PO SCH (21:00)
[2024-03-25] MEDS ORDERED: Metoprolol Tartrate 100 MG Tab PO SCH (21:00)
[2024-03-26] MEDS ORDERED: Albuterol 6.7 GM Inhaler INH PRN (00:58)
[2024-03-26] MEDS: Albuterol/Ipratropium 3.0-0.5 MG/3 ML Neb Soln NEB SCH (01:10)
[2024-03-26 05:05] LABS: BASOPHILS PERCENT AUTO 0.4 % (0.0-1.0); HEMATOCRIT 24.7 % (37.0-47.0); HEMOGLOBIN 7.6 gm/dl (12.0-16.0); IMMATURE GRAN ABSOLUTE AUTO 0.04 K/mm3 (0.00-0.05); IMMATURE GRAN PERCENT AUTO 0.7 % (0.0-0.4); LYMPHOCYTES ABSOLUTE AUTO 0.6 K/mm3 (1.0-4.8); LYMPHOCYTES PERCENT AUTO 10.8 % (24.0-44.0); MEAN CORPUSCULAR HEMOGLOBIN 29.7 pg (28.0-32.0); MEAN CORPUSCULAR HGB CONC 30.8 g/dl (32.0-36.0); MEAN CORPUSCULAR VOLUME 96.5 fl (83.0-99.0); MONOCYTES ABSOLUTE AUTO 1.6 K/mm3 (0.0-0.8); MONOCYTES PERCENT AUTO 30.1 % (0.0-8.0); NEUTROPHILS ABSOLUTE AUTO 3.2 K/mm3 (1.8-7.7); PLATELET COUNT,PLT 209 K/mm3 (150-400); RED BLOOD CELL COUNT 2.56 M/mm3 (4.10-5.30); WHITE BLOOD CELL COUNT,WBC 5.45 K/mm3 (3.9-11.3)
[2024-03-26 05:28] LABS: A/G RATIO 0.6 (1-2); ALBUMIN 2.5 g/dl (3.4-5.0); ANION GAP 17.2 (5-15); BILIRUBIN TOTAL 0.5 mg/dL (0.2-1.0); BUN/CREATININE RATIO 23.3 (14-18); C-REACTIVE PROTEIN 22.75 mg/dL (<0.30); CREATININE 1.8 mg/dL (0.55-1.02); EST CRCL DRUG DOSING (CG) 26.25 mL/min; POTASSIUM,K 3.2 mEq/L (3.5-5.1); PROTEIN TOTAL,TP 6.6 g/dl (6.4-8.2)
[2024-03-26] MEDS: Levothyroxine 75 MCG Tab PO SCH (06:33)
[2024-03-26] MEDS: Acetaminophen 325 MG Tab PO PRN (06:59)
[2024-03-26] MEDS: Potassium Chloride 20 MEQ Tab.ER PO ONE (08:44)
[2024-03-26] MEDS: Pantoprazole 40 MG Tab.CR PO SCH (08:45)
[2024-03-26] MEDS: Aspirin 81 MG Tab.EC PO SCH (08:45)
[2024-03-26] MEDS: Apixaban 2.5 MG Tab PO SCH (08:45)
[2024-03-26] MEDS ORDERED: Pravastatin 20 MG Tab PO SCH (09:00)
[2024-03-26 09:22] LABS: SLIDE REVIEW ABNORMAL SMEAR
[2024-03-26] MEDS: LORazepam 2 MG/ML SDV IVPUSH PRN (15:24)
[2024-03-26] MEDS: hydrOXYzine HCl 50 MG Tab PO PRN (15:46)
[2024-03-26] MEDS: Allopurinol 100 MG Tab PO SCH (15:47)
[2024-03-26] MEDS: LORazepam 2 MG/ML SDV IVPUSH STA (15:48)
[2024-03-26] MEDS: ALPRAZolam 0.25 MG Tab PO SCH (16:01)
[2024-03-26] MEDS: guaiFENesin 600 MG Tab.ER PO SCH (20:54)
[2024-03-27] MEDS: Calcitriol 0.25 MCG Cap PO SCH (08:58)
[2024-03-27 09:00] LABS: BASOPHILS ABSOLUTE AUTO 0.1 K/mm3 (0.0-0.2); BASOPHILS PERCENT AUTO 1.6 % (0.0-1.0); EOSINOPHILS PERCENT AUTO 0.2 % (0.0-6.0); HEMATOCRIT 26.9 % (37.0-47.0); HEMOGLOBIN 8.2 gm/dl (12.0-16.0); IMMATURE GRAN ABSOLUTE AUTO 0.04 K/mm3 (0.00-0.05); IMMATURE GRAN PERCENT AUTO 0.8 % (0.0-0.4); LYMPHOCYTES ABSOLUTE AUTO 0.6 K/mm3 (1.0-4.8); LYMPHOCYTES PERCENT AUTO 12.8 % (24.0-44.0); MEAN CORPUSCULAR HEMOGLOBIN 29.6 pg (28.0-32.0); MEAN CORPUSCULAR HGB CONC 30.5 g/dl (32.0-36.0); MEAN CORPUSCULAR VOLUME 97.1 fl (83.0-99.0); MEAN PLATELET VOLUME 10.2 fl (9.4-12.3); MONOCYTES ABSOLUTE AUTO 1.2 K/mm3 (0.0-0.8); MONOCYTES PERCENT AUTO 24.9 % (0.0-8.0); NEUTROPHILS ABSOLUTE AUTO 2.9 K/mm3 (1.8-7.7); NEUTROPHILS PERCENT AUTO 59.7 % (41.0-71.0); PLATELET COUNT,PLT 225 K/mm3 (150-400); RED BLOOD CELL COUNT 2.77 M/mm3 (4.10-5.30); WHITE BLOOD CELL COUNT,WBC 4.85 K/mm3 (3.9-11.3)
[2024-03-27 09:32] LABS: A/G RATIO 0.6 (1-2); ALBUMIN 2.6 g/dl (3.4-5.0); ANION GAP 17.7 (5-15); BILIRUBIN TOTAL 0.6 mg/dL (0.2-1.0); BUN/CREATININE RATIO 21.8 (14-18); C-REACTIVE PROTEIN 21.12 mg/dL (<0.30); CALCIUM 9.7 mg/dL (8.5-10.1); CREATININE 1.7 mg/dL (0.55-1.02); EST CRCL DRUG DOSING (CG) 28.1 mL/min; POTASSIUM,K 3.7 mEq/L (3.5-5.1); PROTEIN TOTAL,TP 6.8 g/dl (6.4-8.2)
[2024-03-27 10:16] LABS: SLIDE REVIEW ABNORMAL SMEAR
[2024-03-27] MEDS: LORazepam 2 MG/ML SDV IVPUSH ONE ×2 (11:20→12:29)
[2024-03-27] MEDS: Diltiazem 25 MG/5 ML SDV ONE (12:29)
[2024-03-27] MEDS: Diltiazem 25 MG/5 ML SDV IVPUSH ONE (12:30)
[2024-03-27] MEDS: Metoprolol Tartrate 50 MG Tab PO SCH (15:38)
[2024-03-27] MEDS: Sodium Chloride 0.9% 1,000 ML IV ONE (16:20)
[2024-03-28 04:53] LABS: BASOPHILS ABSOLUTE AUTO 0.1 K/mm3 (0.0-0.2); BASOPHILS PERCENT AUTO 1.2 % (0.0-1.0); EOSINOPHILS PERCENT AUTO 0.1 % (0.0-6.0); HEMATOCRIT 26.3 % (37.0-47.0); HEMOGLOBIN 7.9 gm/dl (12.0-16.0); IMMATURE GRAN ABSOLUTE AUTO 0.03 K/mm3 (0.00-0.05); IMMATURE GRAN PERCENT AUTO 0.4 % (0.0-0.4); LYMPHOCYTES PERCENT AUTO 14.2 % (24.0-44.0); MEAN CORPUSCULAR HEMOGLOBIN 29.4 pg (28.0-32.0); MEAN CORPUSCULAR VOLUME 97.8 fl (83.0-99.0); MEAN PLATELET VOLUME 10.5 fl (9.4-12.3); MONOCYTES PERCENT AUTO 30.3 % (0.0-8.0); NEUTROPHILS ABSOLUTE AUTO 3.6 K/mm3 (1.8-7.7); NEUTROPHILS PERCENT AUTO 53.8 % (41.0-71.0); PLATELET COUNT,PLT 216 K/mm3 (150-400); RED BLOOD CELL COUNT 2.69 M/mm3 (4.10-5.30); WHITE BLOOD CELL COUNT,WBC 6.74 K/mm3 (3.9-11.3)
[2024-03-28 05:29] LABS: A/G RATIO 0.6 (1-2); ALBUMIN 2.3 g/dl (3.4-5.0); ANION GAP 23.7 (5-15); BILIRUBIN TOTAL 0.7 mg/dL (0.2-1.0); C-REACTIVE PROTEIN 19.71 mg/dL (<0.30); CALCIUM 9.3 mg/dL (8.5-10.1); CREATININE 1.5 mg/dL (0.55-1.02); EST CRCL DRUG DOSING (CG) 31.85 mL/min; POTASSIUM,K 3.7 mEq/L (3.5-5.1); PROTEIN TOTAL,TP 6.5 g/dl (6.4-8.2)
[2024-03-28 05:39] LABS: SLIDE REVIEW ABNORMAL SMEAR
[2024-03-28] MEDS: Dextrose 5% in Water 1,000 ML IV SCH (08:37)
[2024-03-28] MEDS ORDERED: Albuterol/Ipratropium 3.0-0.5 MG/3 ML Neb Soln NEB PRN (19:57)
[2024-03-29 06:18] LABS: O2 SATURATION ARTERIAL 94.6 % (96.0-97.0); PCO2 ARTERIAL 31.7 mmHg (35.0-45.0)
[2024-03-29 06:19] LABS: BASE EXCESS ARTERIAL -5.1 (-2-2.0); BICARBONATE,ARTERIAL 18.7 meq/L (22.0-26.0)
[2024-03-29] MEDS: Insulin Glargine,Human Rec. Analog 100 Units/ML 3 ML Pen SUBCUT SCH (08:11)
[2024-03-29 08:55] LABS: BASOPHILS ABSOLUTE AUTO 0.1 K/mm3 (0.0-0.2); BASOPHILS PERCENT AUTO 0.9 % (0.0-1.0); HEMATOCRIT 27.5 % (37.0-47.0); HEMOGLOBIN 8.2 gm/dl (12.0-16.0); IMMATURE GRAN ABSOLUTE AUTO 0.06 K/mm3 (0.00-0.05); IMMATURE GRAN PERCENT AUTO 0.7 % (0.0-0.4); LYMPHOCYTES ABSOLUTE AUTO 1.3 K/mm3 (1.0-4.8); LYMPHOCYTES PERCENT AUTO 14.9 % (24.0-44.0); MEAN CORPUSCULAR HEMOGLOBIN 29.6 pg (28.0-32.0); MEAN CORPUSCULAR HGB CONC 29.8 g/dl (32.0-36.0); MEAN CORPUSCULAR VOLUME 99.3 fl (83.0-99.0); MEAN PLATELET VOLUME 10.5 fl (9.4-12.3); MONOCYTES ABSOLUTE AUTO 2.4 K/mm3 (0.0-0.8); MONOCYTES PERCENT AUTO 28.8 % (0.0-8.0); NEUTROPHILS ABSOLUTE AUTO 4.6 K/mm3 (1.8-7.7); NEUTROPHILS PERCENT AUTO 54.7 % (41.0-71.0); PLATELET COUNT,PLT 251 K/mm3 (150-400); RED BLOOD CELL COUNT 2.77 M/mm3 (4.10-5.30); WHITE BLOOD CELL COUNT,WBC 8.43 K/mm3 (3.9-11.3)
[2024-03-29 09:23] LABS: A/G RATIO 0.6 (1-2); ALBUMIN 2.4 g/dl (3.4-5.0); ANION GAP 17.9 (5-15); BILIRUBIN TOTAL 0.6 mg/dL (0.2-1.0); BUN/CREATININE RATIO 21.8 (14-18); C-REACTIVE PROTEIN 21.92 mg/dL (<0.30); CALCIUM 9.6 mg/dL (8.5-10.1); CREATININE 1.7 mg/dL (0.55-1.02); EST CRCL DRUG DOSING (CG) 28.1 mL/min; MAGNESIUM 2.2 mg/dL (1.8-2.4); POTASSIUM,K 3.9 mEq/L (3.5-5.1); PROTEIN TOTAL,TP 6.8 g/dl (6.4-8.2)
[2024-03-29 11:49] LABS: SLIDE REVIEW ABNORMAL SMEAR
[2024-03-29 13:50] LABS: FOLIC ACID 9.4 ng/mL (8.6-58.9)
[2024-03-29 14:02] LABS: BARBITURATE SCREEN,URINE NEGATIVE (CUTOFF=200); BENZODIAZEPINES SCREEN,URINE PRESUMPTIVE POSITIVE (CUTOFF=150); BUPRENORPHINE SCREEN,URINE NEGATIVE (CUTOFF=10); METHADONE SCREEN, URINE NEGATIVE (CUTOFF=200); METHAMPHETAMINES SCREEN, URINE NEGATIVE (CUTOFF=500); OXYCODONE SCREEN,URINE NEGATIVE (CUT0FF=100); THC SCREEN,URINE 20 NG/ML NEGATIVE (CUTOFF=50)
[2024-03-29 14:12] LABS: AMPHETAMINES SCREEN, URINE NEGATIVE (CUTOFF=500)
[2024-03-29] MEDS: Diclofenac Sodium 1% Gel 100 GM Tube TOP SCH (15:08)
[2024-03-29] MEDS: Metoprolol Tartrate 5 MG/5 ML SDV IVPUSH ONE (15:53)
[2024-03-29] MEDS: Sodium Chloride 0.9% 500 ML IV ONE (16:49)
[2024-03-29] MEDS: Apixaban 5 MG Tab PO SCH (20:20)
[2024-03-29] MEDS: Metoprolol Tartrate 50 MG Tab PO SCH (20:20)
[2024-03-30] MEDS: Metoprolol Tartrate 5 MG/5 ML SDV IVPUSH ONE (04:40)
[2024-03-30] MEDS: Metoprolol Tartrate 50 MG Tab PO ONE (04:44)
[2024-03-30 05:35] LABS: HEMATOCRIT 24.4 % (37.0-47.0); MEAN CORPUSCULAR HEMOGLOBIN 29.6 pg (28.0-32.0); MEAN CORPUSCULAR HGB CONC 29.9 g/dl (32.0-36.0); MEAN CORPUSCULAR VOLUME 98.8 fl (83.0-99.0); MEAN PLATELET VOLUME 10.1 fl (9.4-12.3); PLATELET COUNT,PLT 239 K/mm3 (150-400); RED BLOOD CELL COUNT 2.47 M/mm3 (4.10-5.30)
[2024-03-30 05:48] LABS: HEMOGLOBIN 7.3 gm/dl (12.0-16.0)
[2024-03-30 05:58] LABS: A/G RATIO 0.5 (1-2); ALKALINE PHOSPHATASE 89 U/L (46-116); ANION GAP 19.7 (5-15); ASPARTATE AMNIOTRANSFERASE,AST 7 U/L (15-37); BILIRUBIN TOTAL 0.5 mg/dL (0.2-1.0); BLOOD UREA NITROGEN,BUN 38 mg/dL (7-18); BUN/CREATININE RATIO 22.4 (14-18); CALCIUM 8.9 mg/dL (8.5-10.1); CARBON DIOXIDE,CO2 20 mEq/L (21-32); CHLORIDE,CL 110 mEq/L (98-107); CREATININE 1.7 mg/dL (0.55-1.02); ESTIMATED GFR 32 mL/min (>60); GLUCOSE RANDOM 250 mg/dL (70-99); POTASSIUM,K 3.7 mEq/L (3.5-5.1); PROTEIN TOTAL,TP 6.3 g/dl (6.4-8.2); SODIUM,NA 146 mEq/L (136-145)
[2024-03-30 06:01] LABS: ALANINE AMINOTRANSFERASE,ALT < 6 U/L (14-59)
[2024-03-30 12:28] LABS: BASOPHILS ABSOLUTE AUTO 0.1 K/mm3 (0.0-0.2); BASOPHILS PERCENT AUTO 0.6 % (0.0-1.0); HEMATOCRIT 27.9 % (37.0-47.0); HEMOGLOBIN 8.2 gm/dl (12.0-16.0); IMMATURE GRAN ABSOLUTE AUTO 0.08 K/mm3 (0.00-0.05); IMMATURE GRAN PERCENT AUTO 0.9 % (0.0-0.4); LYMPHOCYTES ABSOLUTE AUTO 1.3 K/mm3 (1.0-4.8); LYMPHOCYTES PERCENT AUTO 14.2 % (24.0-44.0); MEAN CORPUSCULAR HEMOGLOBIN 29.4 pg (28.0-32.0); MEAN CORPUSCULAR HGB CONC 29.4 g/dl (32.0-36.0); MEAN PLATELET VOLUME 10.5 fl (9.4-12.3); MONOCYTES ABSOLUTE AUTO 3.1 K/mm3 (0.0-0.8); MONOCYTES PERCENT AUTO 33.1 % (0.0-8.0); NEUTROPHILS ABSOLUTE AUTO 4.7 K/mm3 (1.8-7.7); NEUTROPHILS PERCENT AUTO 51.2 % (41.0-71.0); PLATELET COUNT,PLT 250 K/mm3 (150-400); RED BLOOD CELL COUNT 2.79 M/mm3 (4.10-5.30); WHITE BLOOD CELL COUNT,WBC 9.25 K/mm3 (3.9-11.3)
[2024-03-31 05:50] LABS: HEMATOCRIT 24.2 % (37.0-47.0); MEAN CORPUSCULAR HGB CONC 29.8 g/dl (32.0-36.0); MEAN CORPUSCULAR VOLUME 97.6 fl (83.0-99.0); MEAN PLATELET VOLUME 10.3 fl (9.4-12.3); PLATELET COUNT,PLT 256 K/mm3 (150-400); RED BLOOD CELL COUNT 2.48 M/mm3 (4.10-5.30); WHITE BLOOD CELL COUNT,WBC 8.54 K/mm3 (3.9-11.3)
[2024-03-31 05:52] LABS: A/G RATIO 0.5 (1-2); ALBUMIN 2.2 g/dl (3.4-5.0); ANION GAP 15.7 (5-15); BILIRUBIN TOTAL 0.6 mg/dL (0.2-1.0); BUN/CREATININE RATIO 21.8 (14-18); CALCIUM 9.4 mg/dL (8.5-10.1); CREATININE 1.7 mg/dL (0.55-1.02); EST CRCL DRUG DOSING (CG) 28.1 mL/min; POTASSIUM,K 3.7 mEq/L (3.5-5.1); PROTEIN TOTAL,TP 6.5 g/dl (6.4-8.2)
[2024-03-31 05:54] LABS: HEMOGLOBIN 7.2 gm/dl (12.0-16.0)
[2024-03-31] MEDS: Insulin Glargine,Human Rec. Analog 100 Units/ML 3 ML Pen SUBCUT SCH (08:11)
[2024-03-31] MEDS ORDERED: Sodium Chloride 0.9% 250 ML IV SCH (11:30)
[2024-03-31 17:18] LABS: BASOPHILS ABSOLUTE AUTO 0.1 K/mm3 (0.0-0.2); BASOPHILS PERCENT AUTO 0.7 % (0.0-1.0); HEMATOCRIT 29.3 % (37.0-47.0); HEMOGLOBIN 8.8 gm/dl (12.0-16.0); IMMATURE GRAN ABSOLUTE AUTO 0.06 K/mm3 (0.00-0.05); IMMATURE GRAN PERCENT AUTO 0.7 % (0.0-0.4); LYMPHOCYTES ABSOLUTE AUTO 1.4 K/mm3 (1.0-4.8); LYMPHOCYTES PERCENT AUTO 16.3 % (24.0-44.0); MEAN CORPUSCULAR HEMOGLOBIN 28.9 pg (28.0-32.0); MEAN CORPUSCULAR VOLUME 96.4 fl (83.0-99.0); MEAN PLATELET VOLUME 10.3 fl (9.4-12.3); MONOCYTES ABSOLUTE AUTO 2.8 K/mm3 (0.0-0.8); MONOCYTES PERCENT AUTO 32.5 % (0.0-8.0); NEUTROPHILS ABSOLUTE AUTO 4.4 K/mm3 (1.8-7.7); NEUTROPHILS PERCENT AUTO 49.8 % (41.0-71.0); PLATELET COUNT,PLT 215 K/mm3 (150-400); RED BLOOD CELL COUNT 3.04 M/mm3 (4.10-5.30); WHITE BLOOD CELL COUNT,WBC 8.73 K/mm3 (3.9-11.3)
[2024-03-31 17:45] LABS: A/G RATIO 0.5 (1-2); ALBUMIN 2.1 g/dl (3.4-5.0); ANION GAP 16.5 (5-15); BILIRUBIN TOTAL 0.7 mg/dL (0.2-1.0); CALCIUM 9.2 mg/dL (8.5-10.1); CREATININE 1.6 mg/dL (0.55-1.02); EST CRCL DRUG DOSING (CG) 29.86 mL/min; POTASSIUM,K 3.5 mEq/L (3.5-5.1); PROTEIN TOTAL,TP 6.5 g/dl (6.4-8.2)
[2024-04-01 06:05] LABS: HEMATOCRIT 30.6 % (37.0-47.0); HEMOGLOBIN 9.2 gm/dl (12.0-16.0); MEAN CORPUSCULAR HEMOGLOBIN 28.9 pg (28.0-32.0); MEAN CORPUSCULAR HGB CONC 30.1 g/dl (32.0-36.0); MEAN CORPUSCULAR VOLUME 96.2 fl (83.0-99.0); PLATELET COUNT,PLT 218 K/mm3 (150-400); RED BLOOD CELL COUNT 3.18 M/mm3 (4.10-5.30); WHITE BLOOD CELL COUNT,WBC 6.43 K/mm3 (3.9-11.3)
[2024-04-01 06:33] LABS: A/G RATIO 0.5 (1-2); ALBUMIN 2.1 g/dl (3.4-5.0); ANION GAP 16.7 (5-15); BILIRUBIN TOTAL 0.6 mg/dL (0.2-1.0); BUN/CREATININE RATIO 23.8 (14-18); CREATININE 1.6 mg/dL (0.55-1.02); EST CRCL DRUG DOSING (CG) 29.86 mL/min; POTASSIUM,K 3.7 mEq/L (3.5-5.1); PROTEIN TOTAL,TP 6.4 g/dl (6.4-8.2)
[2024-04-01] MEDS: Fluconazole 150 MG Tab PO ONE (08:40)
[2024-04-01] MEDS: Metoprolol Tartrate 100 MG Tab PO SCH (08:42)
[2024-04-02] MEDS ORDERED: Acetaminophen 325 MG Supp RECTAL PRN (07:44)
[2024-04-02] MEDS ORDERED: LORazepam 1 MG Tab PO PRN (07:44)
[2024-04-02] MEDS: Scopalamine 1mg/3day Transdermal Patch TRDERM PRN (09:00)
[2024-04-02] MEDS: Glycopyrrolate 0.2 MG/ML 2 ML SDV IVPUSH PRN (09:01)
[2024-04-02] MEDS: Morphine 4 MG/ML Syringe IVPUSH PRN (09:01)
[2024-04-02 14:46] LABS: TACROLIMUS (FK506) <2.0 ng/mL
[2024-04-03] MEDS: LORazepam 2 MG/ML SDV IVPUSH PRN (12:56)
[2024-04-03 23:56] VITALS: BP 95/56; PULSE 68
== END 2024-04-04 08:55 | disposition expired | DRG 871 ==
LOC: JD.ED 07:59 → JD.ICU 12:23
PROVIDERS: ADMIT Family Medicine; ATTEND Internal Medicine
PROC: 3E03329 Introduction of Other Anti-infective into Peripheral Vein, Percutaneous Approach (ICD-10-PCS; 2024-03-25)
PROC: 4A033R1 Measurement of Arterial Saturation, Peripheral, Percutaneous Approach (ICD-10-PCS; 2024-03-29)
PROC: 30233N1 Transfusion of Nonautologous Red Blood Cells into Peripheral Vein, Percutaneous Approach (ICD-10-PCS; principal; 2024-03-31)
DX: I48.91 Unspecified atrial fibrillation (principal); A41.59 Other Gram-negative sepsis; N18.9 Chronic kidney disease, unspecified; I25.810 Atherosclerosis of coronary artery bypass graft(s) without angina pectoris; G92.8 Other toxic encephalopathy; J96.01 Acute respiratory failure with hypoxia; I48.20 Chronic atrial fibrillation, unspecified; Z88.0 Allergy status to penicillin; Z79.890 Hormone replacement therapy; D84.9 Immunodeficiency, unspecified; N39.0 Urinary tract infection, site not specified; N17.9 Acute kidney failure, unspecified; E87.0 Hyperosmolality and hypernatremia; N18.4 Chronic kidney disease, stage 4 (severe); D46.C Myelodysplastic syndrome with isolated del(5q) chromosomal abnormality; Z94.4 Liver transplant status; L98.419 Non-pressure chronic ulcer of buttock with unspecified severity; R65.20 Severe sepsis without septic shock; I25.10 Atherosclerotic heart disease of native coronary artery without angina pectoris; E78.00 Pure hypercholesterolemia, unspecified; M10.9 Gout, unspecified; M19.90 Unspecified osteoarthritis, unspecified site; K21.9 Gastro-esophageal reflux disease without esophagitis; G43.909 Migraine, unspecified, not intractable, without status migrainosus; E03.9 Hypothyroidism, unspecified; Z66 Do not resuscitate; I12.9 Hypertensive chronic kidney disease with stage 1 through stage 4 chronic kidney disease, or unspecified chronic kidney disease; B96.1 Klebsiella pneumoniae [K. pneumoniae] as the cause of diseases classified elsewhere; E11.622 Type 2 diabetes mellitus with other skin ulcer; R53.81 Other malaise; E11.22 Type 2 diabetes mellitus with diabetic chronic kidney disease; E11.65 Type 2 diabetes mellitus with hyperglycemia; R13.10 Dysphagia, unspecified; T17.908A Unspecified foreign body in respiratory tract, part unspecified causing other injury, initial encounter; Z90.710 Acquired absence of both cervix and uterus; Z98.84 Bariatric surgery status; Z98.890 Other specified postprocedural states; Z87.891 Personal history of nicotine dependence; Z88.1 Allergy status to other antibiotic agents; Z79.1 Long term (current) use of non-steroidal anti-inflammatories (NSAID); Z79.4 Long term (current) use of insulin; Z79.82 Long term (current) use of aspirin; Z79.899 Other long term (current) drug therapy; Z79.51 Long term (current) use of inhaled steroids; Z87.01 Personal history of pneumonia (recurrent); Z91.199 Patient's noncompliance with other medical treatment and regimen due to unspecified reason; Z79.02 Long term (current) use of antithrombotics/antiplatelets; Z79.01 Long term (current) use of anticoagulants; Z95.1 Presence of aortocoronary bypass graft; Z51.5 Encounter for palliative care
CPT/HCPCS: 36415; 71045; 80053; 82140; 83605; 83735; 83880; 84443; 84484 ×2; 84550; 85025; 85379; 85652; 86140; 87428; 93005 ×2; 96361; 96365; 96375; 96376; 99285; J2060; J3490 ×3; J7030; 36430; 36600; 51798; 70450; 70450-26; 70551; 70551-26; 73200-26-RT; 73200-RT; 80197; 80306; 81001; 82607; 82746; 82803; 82947; 85027; 85610; 86850; 86900; 86901; 86922; 87040; 87086; 87088; 87186; 93010; 94640; 94762; 97110-GP; 97162-GP; 97530-GP; 99223; 99232; 99233; 99238; A9270-GY; J0696; J1815; J1815-GY; J2270; J7040; J7060; J7620-GY; P9016